=== PATIENT | female | born 1985 | race Caucasian/White ===

== ENCOUNTER 2016-08-25 19:19 | Emergency (ER) | payer MEDICAID ==
[2016-08-25] MEDS ORDERED: ONDANSETRON 4 MG/2 ML VIAL IVP STA (20:22)
[2016-08-25] MEDS ORDERED: HYDROmorphone 1 MG/ML SYRINGE IVP STA (20:22)
[2016-08-25] MEDS ORDERED: ONDANSETRON 4 MG/2 ML VIAL ONE (20:56)
[2016-08-25] MEDS ORDERED: HYDROmorphone 1 MG/ML SYRINGE ONE (20:56)
[2016-08-25] MEDS ORDERED: HYDROcod/ACET 5/325 Prepack 6 PO STA (22:09)
[2016-08-25] MEDS ORDERED: CIPROFLOXACIN 250 MG TABLET PO STA (22:09)
[2016-08-25] MEDS ORDERED: glipiZIDE 5 MG TABLET PO STA (22:10)
[2016-08-25] MEDS ORDERED: CIPROFLOXACIN 250 MG TABLET PO ONE (22:16)
[2016-08-25] MEDS ORDERED: HYDROcod/ACET 5/325 Prepack 6 PO ONE (22:16)
== END 2016-08-25 22:30 | disposition home or self-care (01) ==
DX: K80.70 Calculus of gallbladder and bile duct without cholecystitis without obstruction (principal); E11.65 Type 2 diabetes mellitus with hyperglycemia; Z79.84 Long term (current) use of oral hypoglycemic drugs; J45.909 Unspecified asthma, uncomplicated; M19.90 Unspecified osteoarthritis, unspecified site; R03.0 Elevated blood-pressure reading, without diagnosis of hypertension
CPT/HCPCS: 36415; 76705; 80053; 81003; 81025; 83690; 85025; 99283; 99284; A9270; J1170

== ENCOUNTER 2016-09-02 11:33 | Outpatient (CLI) | payer MEDICAID | END 2016-09-02 11:34 | disposition home or self-care (01) | DX: I10 Essential (primary) hypertension (principal); E11.9 Type 2 diabetes mellitus without complications; E66.01 Morbid (severe) obesity due to excess calories ==

== ENCOUNTER 2016-09-20 19:01 | Emergency (ER) | payer MEDICAID | END 2016-09-20 23:48 | disposition home or self-care (01) | DX: K80.20 Calculus of gallbladder without cholecystitis without obstruction (principal); E11.65 Type 2 diabetes mellitus with hyperglycemia; Z79.84 Long term (current) use of oral hypoglycemic drugs; I10 Essential (primary) hypertension; F17.200 Nicotine dependence, unspecified, uncomplicated ==

== ENCOUNTER 2016-11-09 22:40 | Emergency (ER) | payer MEDICAID ==
--- NOTE | 2016-11-10 02:08 | ED Physician Documentation ---
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 : None HEENT: None Psych: Depression, Anxiety, Bipolar disorder, Panic attacks, Post traumatic stress disorder, Claustrophobia Musculoskeletal: Other Derm: None - Past Surgical History Past Surgical History: No General: EGD - Present Medications Home Medications: Ambulatory Orders Medication Instructions Recorded Confirmed Glipizide [Glipizide ER] 5 mg PO DAILY #30 tab.er.24 08/25/16 09/20/16 Metformin HCl 1,000 mg PO BID 09/20/16 09/20/16 Ondansetron HCl [Zofran] 4 mg PO Q6HR PRN #14 tablet 11/10/16 - Allergies Allergies/Adverse Reactions: Allergies Allergy/AdvReac Type Severity Reaction Status Date / Time amoxicillin [Amoxicillin] AdvReac Severe Edema Verified 08/25/16 19:23 clarithromycin [From Biaxin] AdvReac Severe Edema Verified 08/25/16 19:23 erythromycin base AdvReac Severe Edema Verified 08/25/16 19:23 [Erythromycin Base] Penicillins AdvReac Severe Edema Verified 08/25/16 19:23 - Social History Does the pt smoke?: Yes Smoking Status: Current every day smoker Does the pt drink ETOH?: No Does the pt have substance abuse?: No - Immunizations Immunizations are current?: Yes - POLST Patient has POLST: No PD ED PE NORMAL - Vitals Vital signs reviewed: Yes - General General: Alert and oriented X 3, No acute distress, Well developed/nourished - Cardiac Cardiac: RRR, No murmur - Respiratory Respiratory: No respiratory distress - Abdomen Abdomen: Soft, Non tender PD ED PE EXPANDED - Respiratory Respiratory: Wheezing (end-expiratory wheezing bilaterally). No: Distress Results - Vitals Vitals: Oxygen O2 Source Room air - Rads (name of study) chest xray Radiology: Prelim report reviewed, See rad report PD MEDICAL DECISION MAKING - ED course Complexity details: reviewed results, re-evaluated patient, considered differential, d/w patient Departure - Departure Disposition: Home, Self Care Clinical Impression: Bronchitis Condition: Good Instructions: ED Upper Resp Infec No Abx Tx Follow-Up: Da Mccall MD [Primary Care Provider] - Within 3 Days Prescriptions: Ondansetron HCl [Zofran] 4 mg PO Q6HR PRN #14 tablet PRN Reason: Nausea / Vomiting Discharge Date/Time: 11/10/16 05:25
[2016-11-10] MEDS ORDERED: IPRATROPIUM/ALBUTEROL 3 ML NEB INH STA (02:24)
[2016-11-10] MEDS ORDERED: ONDANSETRON ODT 4 MG TABLET TL STA (02:25)
[2016-11-10] MEDS ORDERED: ONDANSETRON ODT 4 MG TABLET ONE (02:26)
[2016-11-10] MEDS ORDERED: IPRATROPIUM/ALBUTEROL 3 ML NEB INH ONE (02:33)
--- NOTE | 2016-11-10 03:12 | XRAY Preliminary Report ---
Exam: XR Chest 2 View PA/LAT IMPRESSION: 1. No acute abnormality seen in the chest. [facility] SITE ID: [id number]
--- NOTE | 2016-11-10 03:15 | XRAY Report ---
EXAM: CHEST RADIOGRAPHY EXAM DATE: 11/10/2016 02:53 AM. CLINICAL HISTORY: Cough, dyspnea. COMPARISON: 09/20/2016. TECHNIQUE: 2 views. FINDINGS: Lungs/Pleura: No alveolar consolidation or pleural effusion. No pneumothorax. Mediastinum: Heart and mediastinal contours are unremarkable. Other: None. IMPRESSION: 1. No acute abnormality seen in the chest. [facility] Referring Provider Line: [phone] SITE ID: [id number]
[2016-11-10] MEDS ORDERED: ALBUTEROL 8 GM INHALER INH STA (04:42)
[2016-11-10] MEDS ORDERED: ALBUTEROL 8 GM INHALER INH ONE (04:54)
[2016-11-10 05:25] VITALS: BP 128/70
== END 2016-11-10 05:25 | disposition home or self-care (01) ==
LOC: ED 22:40
DX: J45.909 Unspecified asthma, uncomplicated (principal); I10 Essential (primary) hypertension; E78.00 Pure hypercholesterolemia, unspecified; E11.9 Type 2 diabetes mellitus without complications; Z79.84 Long term (current) use of oral hypoglycemic drugs; Z87.11 Personal history of peptic ulcer disease; F17.200 Nicotine dependence, unspecified, uncomplicated
CPT/HCPCS: 71020; 94640; 94664; 99283; A9270; J7620; Q0162

== ENCOUNTER 2016-12-06 13:06 | Outpatient (CLI) | payer MEDICAID ==
[2016-12-06 19:17] LABS: CALCIUM 9.1 mg/dL (8.5-10.3); CREATININE 0.6 mg/dL (0.4-1.0); POTASSIUM 3.9 mmol/L (3.5-5.0)
[2016-12-06 19:41] LABS: HEMOGLOBIN A1C 0.8 g/dL
== END 2016-12-06 13:07 | disposition home or self-care (01) ==
LOC: LAB.N 13:06
PROVIDERS: ATTEND Family Medicine
DX: E11.9 Type 2 diabetes mellitus without complications (principal)
CPT/HCPCS: 36415; 80048; 83036

== ENCOUNTER 2016-12-23 21:48 | Emergency (ER) | payer MEDICAID ==
[2016-12-23 22:22] LABS: BASOPHILS # (AUTO) 0.1 10^3/uL (0.0-0.1); BASOPHILS % (AUTO) 0.8 %; EOSINOPHILS # (AUTO) 0.2 10^3/uL (0.0-0.7); EOSINOPHILS % (AUTO) 2.1 %; HCT - HEMATOCRIT 42.6 % (37.0-47.0); HGB - HEMOGLOBIN 14.3 g/dL (12.0-16.0); LYMPHOCYTES # (AUTO) 3.6 10^3/uL (1.5-3.5); LYMPHOCYTES % (AUTO) 31.7 %; MEAN CORPUSCULAR HEMOGLOBIN 29.5 pg (27.0-31.0); MEAN CORPUSCULAR HGB CONC 33.6 g/dL (32.0-36.0); MEAN CORPUSCULAR VOLUME 87.9 fL (81.0-99.0); MONOCYTES # (AUTO) 0.7 10^3/uL (0.0-1.0); NEUTROPHILS # (AUTO) 6.7 10^3/uL (1.5-6.6); NEUTROPHILS % (AUTO) 59.4 %; RED BLOOD COUNT 4.85 10^6/uL (4.20-5.40); RED CELL DISTRIBUTION WIDTH 13.1 % (12.0-15.0); UNCORRECTED WHITE BLOOD COUNT 11.3 x10^3/uL; WHITE BLOOD COUNT 11.3 x10^3/uL (4.8-10.8)
[2016-12-23 22:32] LABS: ALBUMIN/GLOBULIN RATIO 1.6 (1.0-2.2); BILIRUBIN,TOTAL 0.7 mg/dL (0.2-1.0); CALCIUM 9.4 mg/dL (8.5-10.3); CREATININE 0.7 mg/dL (0.4-1.0); POTASSIUM 3.6 mmol/L (3.5-5.0); TOTAL PROTEIN 7.6 g/dL (6.7-8.2)
[2016-12-23] MEDS ORDERED: ONDANSETRON 4 MG/2 ML VIAL IVP STA (22:35)
[2016-12-23] MEDS ORDERED: HYDROmorphone 1 MG/ML SYRINGE IVP STA (22:35)
--- NOTE | 2016-12-23 22:37 | ED Physician Documentation ---
PD HPI ABD PAIN - Stated complaint Stated Complaint: N/V/RT SIDE PX - Chief complaint Chief Complaint: Abd Pain - History obtained from History obtained from: Patient - History of Present Illness Timing - onset: How many hours ago (6) Timing - duration: Hours (6) Timing - details: Abrupt onset Pain level max: 8 Pain level now: 8 Quality: Aching, Pain Location: RUQ Radiation: Other (R upper back) Improved by: Vomiting Worsened by: Eating Associated symptoms: Nausea, Vomiting. No: Fever, Hematemesis, Diarrhea, Constipation, Melena, Hematochezia, Dysuria, Hematuria Similar symptoms before: Diagnosis (gallstones) Recently seen: Not recently seen Review of Systems Ten Systems: 10 systems reviewed and negative Constitutional: denies: Fever, Chills Nose: denies: Rhinorrhea / runny nose, Congestion Throat: denies: Sore throat Cardiac: denies: Chest pain / pressure Respiratory: denies: Cough, Wheezing GI: denies: Diarrhea, Hematemesis, Bloody / black stool : denies: Dysuria, Frequency, Hesitancy, Discharge, Now EGA Skin: denies: Rash Musculoskeletal: denies: Neck pain Neurologic: denies: Headache PD PAST MEDICAL HISTORY - Past Medical History Cardiovascular: Hypertension, High cholesterol Respiratory: Asthma Neuro: None Endocrine/Autoimmune: Type 2 diabetes GI: Ulcers, 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 : None HEENT: None Psych: Depression, Anxiety, Bipolar disorder, Panic attacks, Post traumatic stress disorder, Claustrophobia Musculoskeletal: Other Derm: None - Past Surgical History Past Surgical History: No General: EGD - Present Medications Home Medications: Ambulatory Orders Medication Instructions Recorded Confirmed Glipizide [Glipizide ER] 5 mg PO DAILY #30 tab.er.24 08/25/16 12/23/16 Metformin HCl 1,000 mg PO BID 09/20/16 12/23/16 Ciprofloxacin HCl [Cipro] 500 mg PO BID #20 tablet 12/24/16 Metronidazole [Flagyl] 500 mg PO BID #20 tablet 12/24/16 - Allergies Allergies/Adverse Reactions: Allergies Allergy/AdvReac Type Severity Reaction Status Date / Time amoxicillin [Amoxicillin] AdvReac Severe Edema Verified 12/23/16 21:54 clarithromycin [From Biaxin] AdvReac Severe Edema Verified 12/23/16 21:54 erythromycin base AdvReac Severe Edema Verified 12/23/16 21:54 [Erythromycin Base] Penicillins AdvReac Severe Edema Verified 12/23/16 21:54 - Social History Does the pt smoke?: Yes Smoking Status: Current every day smoker Does the pt drink ETOH?: No Does the pt have substance abuse?: No - Immunizations Immunizations are current?: Yes - POLST Patient has POLST: No PD ED PE NORMAL - Vitals Vital signs reviewed: Yes - General General: Alert and oriented X 3, No acute distress, Well developed/nourished - HEENT HEENT: PERRL, Moist mucous membranes - Neck Neck: Supple, no meningeal sign - Cardiac Cardiac: RRR, Strong equal pulses - Respiratory Respiratory: No respiratory distress, Clear bilaterally - Abdomen Abdomen: Soft, Non distended, Other (Tender to palpation right upper quadrant. Equivocal Hernandez sign.) - Back Back: No CVA TTP, No spinal TTP - Derm Derm: Warm and dry, No rash - Neuro Neuro: Alert and oriented X 3 - Psych Psych: Normal mood, Normal affect Results - Vitals Vitals: Vital Signs - 24 hr 12/23/16 12/23/16 12/24/16 21:51 23:58 01:18 Temperature 36.3 C L Heart Rate 106 H 81 90 Respiratory 16 19 14 Rate Blood Pressure 143/95 H 136/73 H 121/77 O2 Saturation 100 95 98 Oxygen O2 Source Room air - Labs Labs: Laboratory Tests 12/23/16 12/23/16 12/23/16 22:10 22:10 22:30 WBC 11.3 H RBC 4.85 Hgb 14.3 Hct 42.6 MCV 87.9 MCH 29.5 MCHC 33.6 RDW 13.1 Plt Count 283 MPV 7.0 L Neut # 6.7 H Lymph # 3.6 H [place] # 0.7 Eos # 0.2 Baso # 0.1 Absolute Nucleated RBC 0.00 Nucleated RBCs 0.0 Sodium 140 Potassium 3.6 Chloride 103 Carbon Dioxide 27 Anion Gap 10.0 BUN 11 Creatinine 0.7 Estimated GFR (MDRD) 96 Glucose 133 H Calcium 9.4 Total Bilirubin 0.7 AST 21 ALT 24 Alkaline Phosphatase 85 Total Protein 7.6 Albumin 4.7 Globulin 2.9 Albumin/Globulin Ratio 1.6 Lipase 20 L Urine Color YELLOW Urine Clarity CLEAR Urine pH 5.5 Ur Specific [place] >=1.030 H Urine Protein NEGATIVE Urine Glucose (UA) NEGATIVE Urine Ketones NEGATIVE Urine Occult Blood NEGATIVE Urine Nitrite NEGATIVE Urine Bilirubin NEGATIVE Urine Urobilinogen 0.2 (NORMAL) Ur Leukocyte Esterase NEGATIVE Ur Microscopic Review NOT INDICATED Urine Culture Comments NOT INDICATED - Rads (name of study) Right upper quadrant ultrasound Radiology: Prelim report reviewed, EMP read contemporaneously, See rad report ( Gallstones with mild gallbladder wall thickening and positive sonographic Hernandez sign concerning for acute cholecystitis. Echogenic liver consistent with hepatic steatosis. Indeterminant rounded left liver hypoechoic region, focal fat could have this appearance. Other etiologies also possible. Postcontrast enhanced CT or MRI would be confirmatory. Liver is enlarged. Normal caliber common bile duct.) PD MEDICAL DECISION MAKING - ED course Complexity details: reviewed results, re-evaluated patient, considered differential, d/w patient, d/w family, d/w alliances consultant ED course: Patient is a 31-year-old female who presents to the emergency department with right upper quadrant pain. She is found to have acute cholecystitis on ultrasound. Mildly elevated white blood cell count. Pain well controlled. Surgery was consulted, Dr. Thomason, who evaluated the patient and recommend that she stay for cholecystectomy. Patient declines this and states that she wants to go home. She understands the risks of leaving AMA and is encouraged to return at any time should she change her mind. Patient signed AMA. Will place on antibiotics for home. She is alert and oriented 3. Understands the risks. Is able to make this decision at this time. This document was made in part using voice recognition software. While efforts are made to proofread this document, sound alike and grammatical errors may occur. Departure - Departure Disposition: 07 Against Medical Advice Clinical Impression: Cholecystitis Condition: Stable Instructions: ED Gallbladder Infec Conf Follow-Up: Da Mccall MD [Primary Care Provider] - Within 3 Days Prescriptions: Ciprofloxacin HCl [Cipro] 500 mg PO BID #20 tablet Metronidazole [Flagyl] 500 mg PO BID #20 tablet Comments: Return if you worsen or change your mind about being admitted and having surgery. There is a possibility of your infection worsening and causing sepsis ( blood stream infection) , loss of limbs and loss of your current lifestyle by leaving against medical advice. You are welcome to return at any time should you change your mind. Discharge Date/Time: 12/24/16 02:45
[2016-12-23 22:48] LABS: BILIRUBIN,URINE NEGATIVE (NEGATIVE); PH,URINE 5.5 PH (5.0-7.5)
[2016-12-23 22:51] LABS: UA CHARGE (STRIP ONLY) YES; UR CULTURE IF IND NOT INDICATED
[2016-12-23] MEDS ORDERED: ONDANSETRON 4 MG/2 ML VIAL ONE (22:55)
[2016-12-23] MEDS ORDERED: HYDROmorphone 1 MG/ML SYRINGE ONE (22:55)
--- NOTE | 2016-12-24 00:26 | Ultrasound Preliminary Report ---
Exam: US Abdomen Limited IMPRESSION: 1. Gallstones with mild gallbladder wall thickening and positive sonographic Hernandez's sign concerning for acute cholecystitis. Findings are similar to the previous study. 2. Echogenic liver consistent with hepatic steatosis. Indeterminate rounded left liver hypoechoic reg ion. Focal fact could have this appearance. Other etiologies are also possible. Post contrast enhance d CT or MRI would be confirmatory. Liver is enlarged. 3. Normal caliber common bile duct. [facility] SITE ID: [id number]
--- NOTE | 2016-12-24 00:39 | Ultrasound Report ---
EXAM: ABDOMEN ULTRASOUND LIMITED, RUQ EXAM DATE: 12/23/2016 10:55 PM. CLINICAL HISTORY: Right upper quadrant abdominal pain. COMPARISON: 09/20/2016. TECHNIQUE: Real-time scanning was performed with static images obtained. FINDINGS: Liver: Liver parenchyma is heterogeneous and moderately hyperechoic. Rounded hypoechoic region in t he left liver measuring 2.4 x 2.3 x 2.9 cm. No intrahepatic bile duct dilation is noted. 21.2 cm. Ma in portal vein flow: Hepatopetal. Gallbladder: Gallstones are noted. Positive sonographic Hernandez sign. Mild gallbladder wall thickening . No pericholecystic fluid. Biliary System: CBD measures 4 mm. No intrahepatic or extrahepatic ductal dilatation. Other: Right kidney measures 12.9 cm. No hydronephrosis. Pancreas not well-seen. Study limited due to body habitus. IMPRESSION: 1. Gallstones with mild gallbladder wall thickening and positive sonographic Hernandez's sign concerning for acute cholecystitis. Findings are similar to the previous study. 2. Echogenic liver consistent with hepatic steatosis. Indeterminate rounded left liver hypoechoic reg ion. Focal fat could have this appearance. Other etiologies are also possible. Post-contrast enhanced CT or MRI would be confirmatory. Liver is enlarged. 3. Normal caliber common bile duct. [facility] Referring Provider Line: [phone] SITE ID: [id number]
[2016-12-24] MEDS ORDERED: HYDROmorphone 1 MG/ML SYRINGE IVP STA (00:45)
[2016-12-24] MEDS ORDERED: MOXIFLOXACIN 400MG/250ML IV 250 ML IV STA (00:49)
[2016-12-24] MEDS ORDERED: HYDROmorphone 1 MG/ML SYRINGE ONE (00:50)
[2016-12-24 01:20] VITALS: BP 121/77
[2016-12-24] MEDS ORDERED: LACTATED RINGERS 1,000 ML IV SCH (02:00)
[2016-12-24] MEDS ORDERED: metroNIDAZOLE 500 MG/100 ML 100 ML IV SCH (02:00)
--- NOTE | 2016-12-24 02:10 | CONSULTATION NOTE ---
Surgery Consult - Admit Date Hospital Admission Date: 12/24/16 - Consult Date Consult Date: 12/24/16 - Home Meds/Allergies Home Medications: Patient History Medication Instructions Recorded Confirmed Metformin HCl 1,000 mg PO BID 09/20/16 12/23/16 Allergies/Adverse Reactions: Allergies Allergy/AdvReac Type Severity Reaction Status Date / Time amoxicillin [Amoxicillin] AdvReac Severe Edema Verified 12/23/16 21:54 clarithromycin [From Biaxin] AdvReac Severe Edema Verified 12/23/16 21:54 erythromycin base AdvReac Severe Edema Verified 12/23/16 21:54 [Erythromycin Base] Penicillins AdvReac Severe Edema Verified 12/23/16 21:54 - Consultation Note Consultation Note: PD HPI ABD PAIN - Stated complaint Stated Complaint: N/V/RT SIDE PX - Chief complaint Chief Complaint: Abd Pain - History obtained from History obtained from: Patient - History of Present Illness 31 yo female with PMHx of symptomatic cholelithiasis, DM, PTSD anxiety, HTN, high cholesterol, Depression c/o of recuurent RUQ abdominal pain 8/10 intermittent, sharp. relieved by IV pain medications. She states and as per notes she was seen by our surgical grou for preop for surgery 08/2016 and A1C was found to be 10 and surgery was cancelled. she presents today with Nausea and vomiting and the pain described as above which became unbearable so she came to the ED. She states her current pain is 4 to 5/10 and she has no nausea or vomiting at this time. She is aware that she has gallstones with inflammation and cholecystitis was explained to her. She does not want to stay for possible surgery due to "obligations" she has. The risks of of leaving against medical advice including risk of recurrent pain, worsening cholecystitis , pancreatitis, sepsis, were discussed with patient & her mother in layman 's terms and the patient stated that she has an appointment on 01/07 with her PCP for a referral to a different surgical group. Associated symptoms: Nausea, Vomiting. No: Fever, Hematemesis, Diarrhea, Constipation, Melena, Hematochezia, Dysuria, Hematuria Similar symptoms before: Diagnosis (gallstones) Recently seen: Not recently seen Review of Systems Ten Systems: 10 systems reviewed and negative Constitutional: denies: Fever, Chills Nose: denies: Rhinorrhea / runny nose, Congestion Throat: denies: Sore throat Cardiac: denies: Chest pain / pressure Respiratory: denies: Cough, Wheezing GI: denies: Diarrhea, Hematemesis, Bloody / black stool : denies: Dysuria, Frequency, Hesitancy, Discharge, Now EGA Skin: denies: Rash Musculoskeletal: denies: Neck pain Neurologic: denies: Headache PD PAST MEDICAL HISTORY - Past Medical History Cardiovascular: Hypertension, High cholesterol Respiratory: Asthma Neuro: None Endocrine/Autoimmune: Type 2 diabetes GI: Ulcers, 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 : None HEENT: None Psych: Depression, Anxiety, Bipolar disorder, Panic attacks, Post traumatic stress disorder, Claustrophobia Musculoskeletal: Other Derm: None - Past Surgical History Past Surgical History: No General: EGD - Present Medications Home Medications: Ambulatory Orders Medication Instructions Recorded Confirmed Glipizide [Glipizide ER] 5 mg PO DAILY #30 tab.er.24 08/25/16 12/23/16 Metformin HCl 1,000 mg PO BID 09/20/16 12/23/16 - Allergies Allergies/Adverse Reactions: Allergies Allergy/AdvReac Type Severity Reaction Status Date / Time amoxicillin [Amoxicillin] AdvReac Severe Edema Verified 12/23/16 21:54 clarithromycin [From Biaxin] AdvReac Severe Edema Verified 12/23/16 21:54 erythromycin base AdvReac Severe Edema Verified 12/23/16 21:54 [Erythromycin Base] Penicillins AdvReac Severe Edema Verified 12/23/16 21:54 - Social History Does the pt smoke?: Yes Smoking Status: Current every day smoker Does the pt drink ETOH?: No Does the pt have substance abuse?: No - Immunizations Immunizations are current?: Yes - POLST Patient has POLST: No PE - Vitals Vital signs reviewed: Yes - General General: Alert and oriented X 3, No acute distress, Well developed/nourished, playing on phone - HEENT HEENT: PERRL, Moist mucous membranes - Neck Neck: Supple, no meningeal sign - Cardiac Cardiac: RRR, Strong equal pulses - Respiratory Respiratory: No respiratory distress, Clear bilaterally - Abdomen Abdomen: Soft, morbidly obese,ND, Minimally tender to palpation RUQ. No rebound or guarding , negative hernandez's - Back Back: No CVA TTP, No spinal TTP - Derm Derm: Warm and dry, No rash - Neuro Neuro: Alert and oriented X 3 - Psych Psych: Labile affect Results - Vitals Vitals: Vital Signs - 24 hr 12/23/16 12/23/16 21:51 23:58 Temperature 36.3 C L Heart Rate 106 H 81 Respiratory 16 19 Rate Blood Pressure 143/95 H 136/73 H O2 Saturation 100 95 Oxygen O2 Source Room air - Labs Labs: Laboratory Tests 12/23/16 12/23/16 12/23/16 22:10 22:10 22:30 WBC 11.3 H RBC 4.85 Hgb 14.3 Hct 42.6 MCV 87.9 MCH 29.5 MCHC 33.6 RDW 13.1 Plt Count 283 MPV 7.0 L Neut # 6.7 H Lymph # 3.6 H [place] # 0.7 Eos # 0.2 Baso # 0.1 Absolute Nucleated RBC 0.00 Nucleated RBCs 0.0 Sodium 140 Potassium 3.6 Chloride 103 Carbon Dioxide 27 Anion Gap 10.0 BUN 11 Creatinine 0.7 Estimated GFR (MDRD) 96 Glucose 133 H Calcium 9.4 Total Bilirubin 0.7 AST 21 ALT 24 Alkaline Phosphatase 85 Total Protein 7.6 Albumin 4.7 Globulin 2.9 Albumin/Globulin Ratio 1.6 Lipase 20 L Urine Color YELLOW Urine Clarity CLEAR Urine pH 5.5 Ur Specific [place] >=1.030 H Urine Protein NEGATIVE Urine Glucose (UA) NEGATIVE Urine Ketones NEGATIVE Urine Occult Blood NEGATIVE Urine Nitrite NEGATIVE Urine Bilirubin NEGATIVE Urine Urobilinogen 0.2 (NORMAL) Ur Leukocyte Esterase NEGATIVE Ur Microscopic Review NOT INDICATED Urine Culture Comments NOT INDICATED - Rads (name of study) Right upper quadrant ultrasound Radiology: IMPRESSION: 1. Gallstones with mild gallbladder wall thickening and positive sonographic Hernandez's sign concerning for acute cholecystitis. Findings are similar to the previous study. 2. Echogenic liver consistent with hepatic steatosis. Indeterminate rounded left liver hypoechoic region. Focal fat could have this appearance. Other etiologies are also possible. Post-contrast enhanced CT or MRI would be confirmatory. Liver is enlarged. 3. Normal caliber common bile duct. A/P31 yo female with multiple medical problems including cholecystitis acute vs chronic Recommended patient stay for IV fluids, antibiotics, pain control and cholecystectomy in the am. Patient does not want to stay and is signing out AMA. She understands the risks as described in the HPI and states she is going to see her PCP on the 07 of January. She was instructed to call 911 and return to the ED if she develops fevers , worsening abdominal pain, or vomiting. Recommended to ED attending to give Rx for abx, anti-nausea & pain control
[2016-12-24] MEDS ORDERED: CIPROFLOXACIN 400 MG/200 ML 200 ML IV SCH (09:00)
== END 2016-12-24 02:45 | disposition left against medical advice (07) ==
LOC: ED 21:48
DX: K81.9 Cholecystitis, unspecified (principal); I10 Essential (primary) hypertension; E11.9 Type 2 diabetes mellitus without complications; Z79.84 Long term (current) use of oral hypoglycemic drugs; F17.200 Nicotine dependence, unspecified, uncomplicated
CPT/HCPCS: 36415; 76705; 80053; 81003; 83690; 85025; 96374; 96375; 96376; 99283; 99285; J1170; 81001; 83036; 84703; 85610; 85730; 86850; 86900; 86901; 87086

== ENCOUNTER 2017-01-31 09:36 | Outpatient (CLI) | payer MEDICAID ==
[2017-01-31 10:27] LABS: ALBUMIN/GLOBULIN RATIO 1.4 (1.0-2.2); BILIRUBIN,TOTAL 0.6 mg/dL (0.2-1.0); CALCIUM 9.1 mg/dL (8.5-10.3); CREATININE 0.6 mg/dL (0.4-1.0); POTASSIUM 4.2 mmol/L (3.5-5.0); TOTAL PROTEIN 7.3 g/dL (6.7-8.2)
== END 2017-01-31 09:37 | disposition home or self-care (01) ==
LOC: LAB 09:36
PROVIDERS: ATTEND Surgery
DX: Z01.812 Encounter for preprocedural laboratory examination (principal); K81.9 Cholecystitis, unspecified; K80.20 Calculus of gallbladder without cholecystitis without obstruction
CPT/HCPCS: 36415; 80053

== ENCOUNTER 2017-02-08 06:10 | Day surgery (SDC) | payer MEDICAID ==
[2017-02-08] MEDS ORDERED: LACTATED RINGERS 1,000 ML IV ONE ×2 (07:12→08:21)
[2017-02-08 07:29] LABS: HCG UR QUAL NEGATIVE
[2017-02-08] MEDS ORDERED: ceFAZolin 3 GM/20 ML SYRINGE IVP ONE (08:00)
[2017-02-08] MEDS ORDERED: BUPIVACAINE 0.5%-EPI 1:200000 PF 30 ML VIAL SUBQ ONE ×2 (08:13)
[2017-02-08] MEDS ORDERED: ROCURONIUM 50 MG/5 ML VIAL IVP ONE (08:15)
[2017-02-08] MEDS ORDERED: SUCCINYLCHOLINE 200 MG/10 ML VIAL IVP ONE (08:15)
[2017-02-08] MEDS ORDERED: GLYCOPYRROLATE 1 MG/5 ML VIAL IVP ONE (08:15)
[2017-02-08] MEDS ORDERED: ONDANSETRON 4 MG/2 ML VIAL IVP ONE (08:15)
[2017-02-08] MEDS ORDERED: MIDAZOLAM 2 MG/2 ML VIAL IVP ONE (08:15)
[2017-02-08] MEDS ORDERED: NEOSTIGMINE 1 MG/1 ML 10 ML MDV IVP ONE (08:15)
[2017-02-08] MEDS ORDERED: PROPOFOL 200 MG/20 ML VIAL IVP ONE (08:15)
[2017-02-08] MEDS ORDERED: LIDOCAINE-PF 2% 10 ML AMP SUBQ ONE (08:15)
[2017-02-08] MEDS ORDERED: fentaNYL 100 MCG/2 ML VIAL IVP ONE (08:15)
[2017-02-08] MEDS ORDERED: ACETAMINOPHEN 1,000 MG/100 ML VIAL IV ONE (08:15)
[2017-02-08] MEDS ORDERED: DEXAMETHASONE 4 MG/ML VIAL IVP ONE (08:15)
[2017-02-08] MEDS ORDERED: SODIUM CHLORIDE FLUSH 0.9% 10 ML SYRINGE IVP ONE (10:20)
[2017-02-08] MEDS: fentaNYL 100 MCG/2 ML VIAL ONE ×6 (10:22→11:19)
[2017-02-08] MEDS: HYDROmorphone 1 MG/ML SYRINGE ONE ×5 (10:26→11:18)
--- NOTE | 2017-02-08 10:31 | OPERATIVE REPORT ---
DATE OF SURGERY: 02/08/2017 00:00:00 SURGEON: Radha Bernal MD. PREOPERATIVE DIAGNOSIS: History of acute cholecystitis and recurring biliary colic. POSTOPERATIVE DIAGNOSIS: History of acute cholecystitis and recurring biliary colic. NAME OF PROCEDURE: Laparoscopic cholecystectomy. INDICATION FOR PROCEDURE: This is a 32-year-old morbidly obese female who presented to my office for recurrent biliary colic and acute cholecystitis. She had been seen by previous surgeons in the past; however, she was noncompliant with her diabetic medications and her hemoglobin A1c was over 10. Once her diabetes was well controlled with a hemoglobin at around 7, she was scheduled for elective surgery. FINDINGS: After obtaining informed consent from the patient, she was brought into the operating room and positioned on the operating table in the supine position, taking note of pressure points. A foot board was placed and the patient was secured at the level of the feet, legs and chest to ensure no slippage during surgery. She was then prepped and draped in the usual sterile fashion. She was intubated by Anesthesia; 3 grams of Ancef were administered. A time-out was taken according to protocol. I attempted to place a varess needle in the left upper quadrant, however, it was not long enough to enter the abdominal cavity. A supraumbilical 1 cm incision was created and deepened down to the level of the umbilical stalk. The Veress needle was inserted in this location and the peritoneal cavity insufflated. Using the 5 mm Optiview trocar device, the abdominal cavity was entered in the epigastric region to the right of the midline. The Veress needle was exchanged for a 12 mm port. Two additional 5 mm ports were then placed along the right subcostal margin. The gallbladder was grasped and elevated. Filmy adhesions of the underlying omentum were divided using electrocautery. The liver was noted to be quite large and the gallbladder was unable to be retracted over the dome of the liver. Additionally, the patient's body habitus created difficulty in obtaining adequate visualization. She was placed in a very steep Trendelenburg and eventually visualization of the base of the gallbladder was achieved. The gallbladder was retracted medially and the lateral attachments of the base of the gallbladder were divided both anteriorly and then medially. The cystic duct was then visualized, as well as the underlying common bile duct. The common bile duct was protected during dissection. The cystic duct was circumferentially dissected from fatty tissue. It was clipped with 2 clips, placed proximally, 1 distally, and divided. The cystic artery was then located and was similarly dissected away from surrounding structures with 2 clips placed proximally, 1 distally, and divided. The gallbladder was then resected from the gallbladder fossa. There was a small amount of bleeding from the liver bed during this process and this was controlled with electrocautery. There was no spillage of bile or stones during removal of the gallbladder. The gallbladder was then placed in a specimen bag and the camera changed to the epigastric port site. The gallbladder was removed through the umbilical port site. The abdominal cavity was inspected for signs of bleeding and hemostasis was noted to be achieved. I attempted to close the epigastric port site with a Nicholas-Lizzette device; however, due to the large amount of subcutaneous tissue , the device continued to drop the suture upon pulling it through the subcutaneous tissue. Multiple attempts failed and I eventually had to close the port site from the anterior approach. The incision had to be extended about 1 cm cephalad in order to visualize the fascia. The fascia was then closed with 2 interrupted [id number] Vicryl sutures. The skin incisions were closed with 4-0 Monocryl; 30 mL of local anesthetic was utilized. The fascia was then extubated and taken to the recovery room in stable condition. ESTIMATED BLOOD LOSS: 10 mL. SPECIMEN: Gallbladder. COMPLICATIONS: None. 10:9:00 JOB #: [id number] EXT JOB #:[id number] KARYN
[2017-02-08 12:46] VITALS: BP 113/62
== END 2017-02-08 06:11 | disposition home or self-care (01) ==
LOC: SDS 06:10
PROVIDERS: ATTEND Surgery
PROC: 0FT44ZZ Resection of Gallbladder, Percutaneous Endoscopic Approach (ICD-10-PCS; principal; 2017-02-08 07:30)
DX: K80.10 Calculus of gallbladder with chronic cholecystitis without obstruction (principal); E11.9 Type 2 diabetes mellitus without complications; E66.01 Morbid (severe) obesity due to excess calories; I10 Essential (primary) hypertension; F17.210 Nicotine dependence, cigarettes, uncomplicated; Z68.42 Body mass index [BMI] 45.0-49.9, adult; Z79.84 Long term (current) use of oral hypoglycemic drugs; Z88.0 Allergy status to penicillin; Z88.2 Allergy status to sulfonamides
CPT/HCPCS: 47562; 81025; J0131; J1170; J7120

== ENCOUNTER 2017-04-15 11:58 | Emergency (ER) | payer MEDICAID ==
[2017-04-15 13:16] LABS: BASOPHILS # (AUTO) 0.1 10^3/uL (0.0-0.1); BASOPHILS % (AUTO) 0.6 %; EOSINOPHILS # (AUTO) 0.4 10^3/uL (0.0-0.7); EOSINOPHILS % (AUTO) 3.6 %; HCT - HEMATOCRIT 41.5 % (37.0-47.0); LYMPHOCYTES # (AUTO) 2.4 10^3/uL (1.5-3.5); LYMPHOCYTES % (AUTO) 20.3 %; MEAN CORPUSCULAR HEMOGLOBIN 29.5 pg (27.0-31.0); MEAN CORPUSCULAR HGB CONC 33.9 g/dL (32.0-36.0); MEAN CORPUSCULAR VOLUME 87.2 fL (81.0-99.0); MONOCYTES # (AUTO) 0.7 10^3/uL (0.0-1.0); MONOCYTES % (AUTO) 6.3 %; NEUTROPHILS % (AUTO) 69.2 %; NUCLEATED RED BLOOD CELLS AUTO 0.2 /100WBC; RED BLOOD COUNT 4.76 10^6/uL (4.20-5.40); RED CELL DISTRIBUTION WIDTH 12.9 % (12.0-15.0); UNCORRECTED WHITE BLOOD COUNT 11.6 x10^3/uL; WHITE BLOOD COUNT 11.6 x10^3/uL (4.8-10.8)
--- NOTE | 2017-04-15 13:16 | XRAY Preliminary Report ---
Exam: XR CHEST 2 VIEW PA/LAT IMPRESSION: Normal 2-view chest radiography. [facility] SITE ID: [id number]
--- NOTE | 2017-04-15 13:19 | XRAY Report ---
EXAM: CHEST RADIOGRAPHY EXAM DATE: 04/15/2017 01:08 PM. CLINICAL HISTORY: Cough. COMPARISON: 11/10/2016. TECHNIQUE: 2 views. FINDINGS: Lungs/Pleura: No focal opacities evident. No pleural effusion. No pneumothorax. Normal volumes. Mediastinum: Heart and mediastinal contours are unremarkable. Other: None. IMPRESSION: Normal 2-view chest radiography. [facility] Referring Provider Line: [phone] SITE ID: [id number]
[2017-04-15 13:25] LABS: BILIRUBIN,URINE NEGATIVE (NEGATIVE); PH,URINE 5.5 PH (5.0-7.5)
[2017-04-15 13:27] LABS: HCG UR QUAL NEGATIVE; UA w/ MICROSCOPIC CHARGE YES
[2017-04-15 13:34] LABS: ALBUMIN/GLOBULIN RATIO 1.2 (1.0-2.2); BILIRUBIN,TOTAL 0.7 mg/dL (0.2-1.0); CALCIUM 8.7 mg/dL (8.5-10.3); CREATININE 0.6 mg/dL (0.4-1.0); TOTAL PROTEIN 7.4 g/dL (6.7-8.2)
[2017-04-15 13:47] LABS: UR CULTURE IF IND NOT INDICATED; WBC,URINE 0-3 /HPF (0-5)
[2017-04-15] MEDS ORDERED: IPRATROPIUM/ALBUTEROL 3 ML NEB INH STA (14:25)
[2017-04-15] MEDS ORDERED: IPRATROPIUM/ALBUTEROL 3 ML NEB INH ONE (15:02)
[2017-04-15] MEDS ORDERED: ALBUTEROL NEB 2.5 MG/3 ML INH STA (15:23)
[2017-04-15] MEDS ORDERED: ALBUTEROL NEB 2.5 MG/3 ML INH ONE (15:28)
--- NOTE | 2017-04-15 16:29 | ED Physician Documentation ---
History of Present Illness - Stated complaint Stated Complaint: COUGH/VOMITING - Chief complaint Chief Complaint: Abd Pain - History obtained from History obtained from: Patient - History of Present Illness Timing: How many days ago (5) - Additonal information Additional information: The patient is a 32-year-old female who presents with cough of 5 days' duration. Her cough is productive of scant sputum. She reports associated fever and chills, as well as sore throat and myalgias. She sometimes coughs to the point of vomiting. She also reports intermittent diarrhea for the past 4 days. She reports headaches, myalgias, and dysuria. Other family members have been ill with similar symptoms. Social history is significant for cigarette smoking. Review of Systems Constitutional: reports: Fever, Chills, Myalgias, Fatigue Eyes: denies: Irritation Ears: denies: Ear pain Nose: reports: Congestion Throat: reports: Sore throat Cardiac: denies: Chest pain / pressure Respiratory: reports: Dyspnea, Cough GI: reports: Vomiting, Diarrhea. denies: Abdominal Pain : reports: Dysuria Skin: denies: Rash Musculoskeletal: reports: Back pain (chronically). 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 HEENT: Chronic vision loss Psych: Depression, Anxiety, Bipolar disorder, Panic attacks, ADD/ADHD, Post traumatic stress disorder, Claustrophobia, Obsessive compulsive disorder Musculoskeletal: Osteoarthritis, Chronic back pain, Other Derm: None - Past Surgical History Past Surgical History: No General: EGD - Present Medications Home Medications: Ambulatory Orders Medication Instructions Recorded Confirmed Glipizide [Glipizide ER] 5 mg PO DAILY #30 tab.er.24 08/25/16 04/15/17 Metformin HCl 1,000 mg PO BID 09/20/16 04/15/17 Albuterol Sulfate [Proventil Hfa 1 - 2 puffs INH Q4H PRN #1 inhaler 04/15/17 Inhaler] Azithromycin [Zithromax] 250 mg PO DAILY #6 tablet 04/15/17 Inhaler, Assist Devices 1 each MC PRN PRN #1 spacer 04/15/17 [Aerochamber Mini] - Allergies Allergies/Adverse Reactions: Allergies Allergy/AdvReac Type Severity Reaction Status Date / Time Sulfa (Sulfonamide Allergy Severe Anaphylaxis Verified 01/31/17 10:07 Antibiotics) amoxicillin [Amoxicillin] AdvReac Severe Edema Verified 12/23/16 21:54 clarithromycin [From Biaxin] AdvReac Severe Edema Verified 12/23/16 21:54 erythromycin base AdvReac Severe Edema Verified 12/23/16 21:54 [Erythromycin Base] Penicillins AdvReac Severe Edema Verified 12/23/16 21:54 - Social History Does the pt smoke?: Yes Smoking Status: Current every day smoker Does the pt drink ETOH?: No Does the pt have substance abuse?: No - Immunizations Immunizations are current?: Yes - POLST Patient has POLST: No PD ED PE NORMAL - Vitals Vital signs reviewed: Yes (normal) - General General: Alert and oriented X 3, Other (morbidly obese) - HEENT HEENT: Atraumatic, Ears normal, Pharynx benign - Neck Neck: Supple, no meningeal sign, No adenopathy, No JVD - Cardiac Cardiac: RRR, No murmur - Respiratory Respiratory: Other (Prolonged expiratory phase with poor air movement and faint wheezes heard bilaterally.) - Abdomen Abdomen: Soft, Non tender - Back Back: No CVA TTP - Derm Derm: No rash - Extremities Extremities: No edema, No calf tenderness / cord - Neuro Neuro: Alert and oriented X 3, No motor deficit, Normal speech Results - Vitals Vitals: Oxygen O2 Source Room air - Labs Labs: Laboratory Tests 04/15/17 04/15/17 04/15/17 12:13 13:10 13:10 WBC 11.6 H RBC 4.76 Hgb 14.0 Hct 41.5 MCV 87.2 MCH 29.5 MCHC 33.9 RDW 12.9 Plt Count 275 MPV 7.0 L Neut # 8.0 H Lymph # 2.4 [place] # 0.7 Eos # 0.4 Baso # 0.1 Absolute Nucleated RBC 0.02 Nucleated RBC % 0.2 Sodium 136 Potassium 4.0 Chloride 103 Carbon Dioxide 26 Anion Gap 7.0 BUN 9 Creatinine 0.6 Estimated GFR (MDRD) 114 Glucose 135 H Calcium 8.7 Total Bilirubin 0.7 AST 22 ALT 29 Alkaline Phosphatase 87 Total Protein 7.4 Albumin 4.1 Globulin 3.3 Albumin/Globulin Ratio 1.2 Lipase 16 L Urine Color YELLOW Urine Clarity CLOUDY Urine pH 5.5 Ur Specific [place] >=1.030 H Urine Protein NEGATIVE Urine Glucose (UA) NEGATIVE Urine Ketones NEGATIVE Urine Occult Blood NEGATIVE Urine Nitrite NEGATIVE Urine Bilirubin NEGATIVE Urine Urobilinogen 0.2 (NORMAL) Ur Leukocyte Esterase NEGATIVE Urine RBC 0-5 Urine WBC 0-3 Ur Squamous Epith Cells MOD Squamous H Urine Bacteria None Seen Ur Microscopic Review INDICATED Urine Culture Comments NOT INDICATED Urine HCG, Qual NEGATIVE - Rads (name of study) CXR Radiology: Prelim report reviewed, EMP read contemporaneously, See rad report ( Normal 2 view chest.) PD MEDICAL DECISION MAKING - ED course Complexity details: reviewed old records, reviewed results, re-evaluated patient , considered differential, d/w patient, d/w family ED course: The patient's presentation is most consistent with acute asthmatic bronchitis. Her chest x-ray does not reveal pneumonia or congestive heart failure. CBC reveals a mildly elevated white count of 11.6. Urinalysis is negative. Treatment in the emergency department included administration of DuoNeb nebulizer, followed later by albuterol nebulizer. On reexamination the patient' s air movement has improved, wheezes became more pronounced after the initial nebulizer, but improved after the second nebulizer. At the time of discharge the patient felt subjectively much improved. Given her presentation and her history of cigarette smoking, antibiotic therapy is considered clinically appropriate. She is being discharged with prescription for Zithromax. I discussed with her and her mother the diagnosis, treatment and outpatient follow -up, as well as potentially worrisome signs or symptoms that should prompt reevaluation in the emergency department. Departure - Departure Disposition: 01 Home, Self Care Clinical Impression: Dehydration Asthmatic bronchitis with acute exacerbation Qualifiers: Asthma severity: moderate Asthma persistence: persistent Qualified Code(s): J45.41 - Moderate persistent asthma with (acute) exacerbation Vomiting Qualifiers: Vomiting type: unspecified Vomiting Intractability: non-intractable Nausea presence: with nausea Qualified Code(s): R11.2 - Nausea with vomiting, unspecified Condition: Stable Instructions: ED Bronchitis Asthmatic Follow-Up: Da Mccall MD [Primary Care Provider] - Prescriptions: Albuterol Sulfate [Proventil Hfa Inhaler] 1 - 2 puffs INH Q4H PRN #1 inhaler PRN Reason: Shortness Of Air/Wheezing Azithromycin [Zithromax] 250 mg PO DAILY #6 tablet Inhaler, Assist Devices [Aerochamber Mini] 1 each MC PRN PRN #1 spacer PRN Reason: Wheezing Comments: Stop smoking cigarettes. Continues albuterol inhaler with spacer device 4 times daily, or even up to every 2 hours if needed for difficulty breathing. Take Zithromax daily for the next 5 days as prescribed. You can use Tylenol or ibuprofen if needed for fever or discomfort. Follow up with your primary physician within 2 weeks as scheduled. Return to the emergency department if you develop increasing difficulty breathing, persistent vomiting, recurrent dehydration, or otherwise worsening symptoms. Discharge Date/Time: 04/15/17 16:56
[2017-04-15 16:49] VITALS: BP 126/80
== END 2017-04-15 16:56 | disposition home or self-care (01) ==
LOC: ED 11:58
DX: E86.0 Dehydration (principal); J45.41 Moderate persistent asthma with (acute) exacerbation; R11.2 Nausea with vomiting, unspecified; I10 Essential (primary) hypertension; E11.9 Type 2 diabetes mellitus without complications; Z79.84 Long term (current) use of oral hypoglycemic drugs; E78.00 Pure hypercholesterolemia, unspecified; M19.90 Unspecified osteoarthritis, unspecified site; F17.200 Nicotine dependence, unspecified, uncomplicated
CPT/HCPCS: 36415; 71020; 80053; 81001; 81025; 83690; 85025; 94640; 99283; J7613; J7620; 81003; 87086

== ENCOUNTER 2017-05-05 13:07 | Outpatient (CLI) | payer MEDICAID ==
--- NOTE | 2017-05-05 14:15 | Ultrasound Report ---
ULTRASOUND LEFT LATERAL FOOT: 05/05/2017 CLINICAL INDICATION: Pain, swelling, palpable abnormality. TECHNIQUE: Real-time scanning was performed with client relations representative static images obtained. FINDINGS: Ultrasound of the left lateral foot was performed. At the site of the palpable abnormalit y, adjacent to the lateral tarsometatarsal joint, there is a periarticular cyst, measuring 1.5 x 1.4 x 0.4 cm. No sonographically suspicious findings are identified. IMPRESSION: PERIARTICULAR CYST AT THE SITE OF THE PALPABLE ABNORMALITY. JOB #: [id number] EXT JOB #:[id number]
== END 2017-05-05 13:08 | disposition home or self-care (01) ==
LOC: DI 13:07
PROVIDERS: ATTEND Family Medicine
DX: M25.872 Other specified joint disorders, left ankle and foot (principal)
CPT/HCPCS: 76882

== ENCOUNTER 2017-08-16 19:50 | Emergency (ER) | payer MEDICAID ==
--- NOTE | 2017-08-16 21:36 | ED Physician Documentation ---
PD HPI HEENT - Stated complaint Stated Complaint: LT EAR/TOOTH PX - Chief complaint Chief Complaint: Heent - History obtained from History obtained from: Patient - History of Present Illness Timing - onset: How many days ago (few) Timing - duration: Days (few) Timing - details: Gradual onset, Still present, Waxing and waning Location: Tooth (left lower molar prior significant cavity and has had infection before. Unable to get dental appt. Has pain again the past few days. Pain radiates to left ear.) Associated symptoms: Fever, Swollen nodes (mild left). No: Congestion, Trismus , Facial swelling, Headache Similar symptoms before: Diagnosis (dental infection) Recently seen: Not recently seen Review of Systems Constitutional: reports: Fever. denies: Chills Ears: reports: Ear pain. denies: Drainage/discharge Nose: denies: Rhinorrhea / runny nose, Congestion Throat: reports: Dental pain / toothache (with some drainage at times). 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 HEENT: Chronic vision loss Psych: Depression, Anxiety, Bipolar disorder, Panic attacks, ADD/ADHD, Post traumatic stress disorder, Claustrophobia, Obsessive compulsive disorder Musculoskeletal: Osteoarthritis, Chronic back pain, Other Derm: None - Past Surgical History Past Surgical History: No General: EGD - Present Medications Home Medications: Ambulatory Orders Medication Instructions Recorded Confirmed Glipizide [Glipizide ER] 5 mg PO DAILY #30 tab.er.24 08/25/16 04/15/17 Metformin HCl 1,000 mg PO BID 09/20/16 04/15/17 Albuterol Sulfate [Proventil Hfa 1 - 2 puffs INH Q4H PRN #1 inhaler 04/15/17 Inhaler] Azithromycin [Zithromax] 250 mg PO DAILY #6 tablet 04/15/17 Inhaler, Assist Devices 1 each MC PRN PRN #1 spacer 04/15/17 [Aerochamber Mini] Clindamycin HCl [Cleocin HCl] 300 mg PO TID #21 capsule 08/16/17 HYDROcod/ACETAM 5/325 [[place] 5/325] 1 tab PO Q6H PRN #18 tablet 08/16/17 Naproxen [Naprosyn] 500 mg PO BID PRN #20 tablet 08/16/17 - Allergies Allergies/Adverse Reactions: Allergies Allergy/AdvReac Type Severity Reaction Status Date / Time Sulfa (Sulfonamide Allergy Severe Anaphylaxis Verified 01/31/17 10:07 Antibiotics) amoxicillin [Amoxicillin] AdvReac Severe Edema Verified 12/23/16 21:54 clarithromycin [From Biaxin] AdvReac Severe Edema Verified 12/23/16 21:54 erythromycin base AdvReac Severe Edema Verified 12/23/16 21:54 [Erythromycin Base] Penicillins AdvReac Severe Edema Verified 12/23/16 21:54 - Social History Does the pt smoke?: Yes Smoking Status: Current every day smoker Does the pt drink ETOH?: No Does the pt have substance abuse?: No - Immunizations Immunizations are current?: Yes - POLST Patient has POLST: No PD ED PE NORMAL - Vitals Vital signs reviewed: Yes - General General: Alert and oriented X 3, No acute distress, Well developed/nourished - HEENT HEENT: Pharynx benign. No: Dentition benign (left lower molar with erosion to gumline of 2nd molar, with gum swelling and tenderness but no fluctuance. Anterior mild adenopathy. Left ear appears normal. ) Results - Vitals Vitals: Oxygen O2 Source Room air PD MEDICAL DECISION MAKING - ED course Complexity details: considered differential, d/w patient Departure - Departure Disposition: 01 Home, Self Care Clinical Impression: Dental abscess Condition: Stable Record reviewed to determine appropriate education?: Yes Instructions: ED Abscess Dental Follow-Up: Da Mccall MD [Primary Care Provider] - Prescriptions: Clindamycin HCl [Cleocin HCl] 300 mg PO TID #21 capsule HYDROcod/ACETAM 5/325 [[place] 5/325] 1 tab PO Q6H PRN #18 tablet PRN Reason: Pain Naproxen [Naprosyn] 500 mg PO BID PRN #20 tablet PRN Reason: Pain Comments: Drink lots of fluids. Antiseptic rinse in the gum and tooth area a few times a day. This can be mouthwash such as Listerine. Clindamycin 3 times a day for a week for the infection. Naproxen twice daily for inflammation. Add hydrocodone if needed for pain. Recheck if not improving over the next several days. Follow-up with a dentist as soon as he can get an appointment. Discharge Date/Time: 08/16/17 21:56
[2017-08-16] MEDS ORDERED: IBUPROFEN 600 MG TABLET PO STA (21:41)
[2017-08-16] MEDS ORDERED: HYDROcod/ACETAM 5/325 MG TABLET PO STA (21:41)
[2017-08-16] MEDS ORDERED: CLINDAMYCIN 150 MG CAPSULE PO STA (21:41)
[2017-08-16 21:58] VITALS: BP 178/104
== END 2017-08-16 21:56 | disposition home or self-care (01) ==
LOC: ED 19:50
DX: K04.7 Periapical abscess without sinus (principal); I10 Essential (primary) hypertension; E78.00 Pure hypercholesterolemia, unspecified; E11.9 Type 2 diabetes mellitus without complications; F17.200 Nicotine dependence, unspecified, uncomplicated; Z79.84 Long term (current) use of oral hypoglycemic drugs
CPT/HCPCS: 99283; A9270

== ENCOUNTER 2017-08-18 14:59 | Outpatient (CLI) | payer MEDICAID ==
[2017-08-18 18:54] LABS: CALCIUM 8.6 mg/dL (8.5-10.3); CREATININE 0.5 mg/dL (0.4-1.0)
[2017-08-18 19:03] LABS: HB2 TOTAL 15.6 g/dL; HEMOGLOBIN A1C 0.89 g/dL; HEMOGLOBIN A1C % 7.4 % (4.6-6.2)
== END 2017-08-18 15:00 | disposition home or self-care (01) ==
LOC: LAB.N 14:59
PROVIDERS: ATTEND Family Medicine
DX: E11.9 Type 2 diabetes mellitus without complications (principal)
CPT/HCPCS: 36415; 80048; 83036

== ENCOUNTER 2018-02-06 08:00 | Outpatient (CLI) | payer MEDICAID ==
[2018-02-06 19:41] LABS: CALCIUM 8.8 mg/dL (8.5-10.3); CREATININE 0.6 mg/dL (0.4-1.0)
[2018-02-06 20:36] LABS: HB2 TOTAL 15.4 g/dL; HEMOGLOBIN A1C 0.91 g/dL; HEMOGLOBIN A1C % 7.6 % (4.6-6.2)
== END 2018-02-06 08:01 | disposition home or self-care (01) ==
LOC: LAB.N 08:00
PROVIDERS: ATTEND Family Medicine
DX: E11.9 Type 2 diabetes mellitus without complications (principal)
CPT/HCPCS: 36415; 80048; 83036

== ENCOUNTER 2018-03-10 12:43 | Outpatient (CLI) | payer MEDICAID ==
--- NOTE | 2018-03-10 14:00 | XRAY Report ---
Reason: FOOT PAIN,RIGHT Procedure Date: 03/10/2018 Accession Number: [id number] / [id number] Procedure: XR - Foot 3 View RT CPT Code: FULL RESULT: EXAM: RIGHT FOOT RADIOGRAPHY EXAM DATE: 03/10/2018 01:06 PM. CLINICAL HISTORY: FOOT PAIN,RIGHT. COMPARISON: Right foot 03/10/2010. TECHNIQUE: 3 views. FINDINGS: Bones: No fractures or bone lesions. There is a moderate calcaneal spur at the insertion of the plantar fascia. Joints: No subluxations. Soft Tissues: No soft tissue swelling. IMPRESSION: Calcaneal spur. No acute bone findings. RADIA
== END 2018-03-10 12:44 | disposition home or self-care (01) ==
LOC: DI 12:43
PROVIDERS: ATTEND Family Medicine
DX: M77.31 Calcaneal spur, right foot (principal)

== ENCOUNTER 2018-05-26 08:00 | Outpatient (CLI) | payer MEDICAID ==
[2018-05-26 19:32] LABS: CALCIUM 8.9 mg/dL (8.5-10.3); CREATININE 0.6 mg/dL (0.4-1.0)
[2018-05-26 19:34] LABS: HB2 TOTAL 15.9 g/dL; HEMOGLOBIN A1C 1.13 g/dL; HEMOGLOBIN A1C % 8.7 % (4.6-6.2)
== END 2018-05-26 23:59 ==
LOC: LAB.N 08:00
PROVIDERS: ATTEND Family Medicine
DX: E11.9 Type 2 diabetes mellitus without complications (principal)
CPT/HCPCS: 36415; 80048; 83036

== ENCOUNTER 2018-06-10 23:33 | Emergency (ER) | payer MEDICAID ==
[2018-06-10 23:38] VITALS: BP 177/117
--- NOTE | 2018-06-10 23:45 | ED Physician Documentation ---
PD HPI OPHTHO - Stated complaint Stated Complaint: L EYE PAIN - Chief complaint Chief Complaint: Heent - History obtained from History obtained from: Patient - History of Present Illness Timing - onset: Today Timing - details: Gradual onset Location: Left Quality / character: Burning Associated symptoms: Redness, Discharge. No: Swelling, FB sensation, Photophobia, Double vision, Decreased vision, Loss of vision, Headache Contributing factors: No: FB, Wears glasses, Wears contacts Recently seen: Not recently seen - Additional information Additional information: since earlier today, has had sensation of left ear being "clogged" (per patient) and noted "little bit of blood" on Q-tip. her chief complaint is left eye redness, irritation, thick yellow/green discharge since earlier today. Denies injury, denies FB sensation Review of Systems Constitutional: denies: Fever, Chills, Sweats Eyes: reports: Discharge, Irritation. 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 HEENT: Chronic vision loss Psych: Depression, Anxiety, Bipolar disorder, Panic attacks, ADD/ADHD, Post traumatic stress disorder, Claustrophobia, Obsessive compulsive disorder Musculoskeletal: Osteoarthritis, Chronic back pain, Other Derm: None - Past Surgical History Past Surgical History: Yes General: Cholecystectomy, EGD - Present Medications Home Medications: Ambulatory Orders Medication Instructions Recorded Confirmed Glipizide [Glipizide ER] 5 mg PO DAILY #30 tab.er.24 08/25/16 04/15/17 Metformin HCl 1,000 mg PO BID 09/20/16 04/15/17 Albuterol Sulfate [Proventil Hfa 1 - 2 puffs INH Q4H PRN #1 inhaler 04/15/17 Inhaler] Azithromycin [Zithromax] 250 mg PO DAILY #6 tablet 04/15/17 Inhaler, Assist Devices 1 each MC PRN PRN #1 spacer 04/15/17 [Aerochamber Mini] Clindamycin HCl [Cleocin HCl] 300 mg PO TID #21 capsule 08/16/17 HYDROcod/ACETAM 5/325 [[place] 5/325] 1 tab PO Q6H PRN #18 tablet 08/16/17 Naproxen [Naprosyn] 500 mg PO BID PRN #20 tablet 08/16/17 - Allergies Allergies/Adverse Reactions: Allergies Allergy/AdvReac Type Severity Reaction Status Date / Time Sulfa (Sulfonamide Allergy Severe Anaphylaxis Verified 06/10/18 23:38 Antibiotics) amoxicillin [Amoxicillin] AdvReac Severe Edema Verified 06/10/18 23:38 clarithromycin [From Biaxin] AdvReac Severe Edema Verified 06/10/18 23:38 erythromycin base AdvReac Severe Edema Verified 06/10/18 23:38 [Erythromycin Base] Penicillins AdvReac Severe Edema Verified 06/10/18 23:38 - Social History Does the pt smoke?: Yes Smoking Status: Current every day smoker Does the pt drink ETOH?: No Does the pt have substance abuse?: No - Immunizations Immunizations are current?: Yes - POLST Patient has POLST: No PD ED PE NORMAL - Vitals Vital signs reviewed: Yes - General General: Alert and oriented X 3, No acute distress, Well developed/nourished - HEENT HEENT: PERRL, EOMI, Ears normal PD ED PE EXPANDED - Eyes Eyes: Left eye, Normal eyelids, Injected conj/sclera (trace scleral edema (later al aspect)), Exudate Results - Vitals Vitals: Vital Signs - 24 hr 06/10/18 23:34 Temperature 36.2 C L Heart Rate 109 H Respiratory 18 Rate Blood Pressure 177/117 H O2 Saturation 99 Oxygen O2 Source Room air PD MEDICAL DECISION MAKING - ED course Complexity details: considered differential, d/w patient Departure - Departure Disposition: 01 Home, Self Care Clinical Impression: Conjunctivitis Condition: Good Instructions: ED Conjunctivitis Nonspecific Follow-Up: Da Mccall MD [Primary Care Provider] - (3-5 days if symptoms do not improve) Comments: Use the antibiotic drops as follows: 1 drop in left eye four times per day for 5 days Discharge Date/Time: 06/11/18 00:18
[2018-06-11] MEDS ORDERED: POLYMYXIN B/TRIMETH OPHTH DROPS LEFTEYE STA (00:03)
== END 2018-06-11 00:18 | disposition home or self-care (01) ==
LOC: ED 23:33
DX: H10.9 Unspecified conjunctivitis (principal); I10 Essential (primary) hypertension; E78.00 Pure hypercholesterolemia, unspecified; E11.9 Type 2 diabetes mellitus without complications; Z79.84 Long term (current) use of oral hypoglycemic drugs; F17.200 Nicotine dependence, unspecified, uncomplicated
CPT/HCPCS: 99282; 99283; A9270

== ENCOUNTER 2019-08-27 14:37 | Outpatient (CLI) | payer MEDICAID ==
[2019-08-27 18:48] LABS: BASOPHILS % (AUTO) 0.5 %; EOSINOPHILS # (AUTO) 0.3 10^3/uL (0.0-0.7); EOSINOPHILS % (AUTO) 3.8 %; HGB - HEMOGLOBIN 14.2 g/dL (12.0-16.0); LYMPHOCYTES # (AUTO) 3.1 10^3/uL (1.5-3.5); LYMPHOCYTES % (AUTO) 39.5 %; MEAN CORPUSCULAR HEMOGLOBIN 30.3 pg (27.0-31.0); MEAN CORPUSCULAR HGB CONC 33.2 g/dL (32.0-36.0); MEAN CORPUSCULAR VOLUME 91.5 fL (81.0-99.0); MEAN PLATELET VOLUME 9.8 fL (7.9-10.8); MONOCYTES # (AUTO) 0.4 10^3/uL (0.0-1.0); MONOCYTES % (AUTO) 5.7 %; NEUTROPHILS # (AUTO) 3.9 10^3/uL (1.5-6.6); NEUTROPHILS % (AUTO) 50.1 %; PLT - PLATELET COUNT 278 10^3/uL (130-450); RED BLOOD COUNT 4.68 10^6/uL (4.20-5.40); RED CELL DISTRIBUTION WIDTH 12.4 % (12.0-15.0); WHITE BLOOD COUNT 7.7 x10^3/uL (4.8-10.8)
[2019-08-27 18:52] LABS: ALBUMIN 4.1 g/dL (3.2-5.5); ALBUMIN/GLOBULIN RATIO 1.5 (1.0-2.2); BILIRUBIN,TOTAL 0.4 mg/dL (0.2-1.0); CALCIUM 8.6 mg/dL (8.5-10.3); CREATININE 0.6 mg/dL (0.4-1.0); TOTAL PROTEIN 6.9 g/dL (6.7-8.2)
[2019-08-27 19:12] LABS: CREATININE,URINE 79.9 mg/dL
[2019-08-27 19:18] LABS: HB2 TOTAL 14.9 g/dL; HEMOGLOBIN A1C 1.02 g/dL; HEMOGLOBIN A1C % 8.4 % (4.6-6.2)
[2019-08-27 19:28] LABS: MICROALBUMIN,URINE < 0.2 mg/dL (0-300.0)
== END 2019-08-27 23:59 ==
LOC: LAB.N 14:37
PROVIDERS: ATTEND Physician Assistant Medical
DX: E11.65 Type 2 diabetes mellitus with hyperglycemia (principal)
CPT/HCPCS: 36415; 80053; 82043; 82570; 83036; 85025

== ENCOUNTER 2020-09-25 13:22 | Outpatient (CLI) | payer MEDICAID ==
[2020-09-25 17:39] LABS: BASOPHILS # (AUTO) 0.1 10^3/uL (0.0-0.1); BASOPHILS % (AUTO) 0.6 %; EOSINOPHILS # (AUTO) 0.3 10^3/uL (0.0-0.7); EOSINOPHILS % (AUTO) 3.3 %; HCT - HEMATOCRIT 44.4 % (37.0-47.0); HGB - HEMOGLOBIN 14.6 g/dL (12.0-16.0); LYMPHOCYTES # (AUTO) 2.8 10^3/uL (1.5-3.5); LYMPHOCYTES % (AUTO) 34.4 %; MEAN CORPUSCULAR HEMOGLOBIN 30.2 pg (27.0-31.0); MEAN CORPUSCULAR HGB CONC 32.9 g/dL (32.0-36.0); MEAN CORPUSCULAR VOLUME 91.7 fL (81.0-99.0); MEAN PLATELET VOLUME 9.8 fL (7.9-10.8); MONOCYTES # (AUTO) 0.4 10^3/uL (0.0-1.0); MONOCYTES % (AUTO) 5.2 %; NEUTROPHILS # (AUTO) 4.6 10^3/uL (1.5-6.6); NEUTROPHILS % (AUTO) 56.3 %; PLT - PLATELET COUNT 287 10^3/uL (130-450); RED BLOOD COUNT 4.84 10^6/uL (4.20-5.40); RED CELL DISTRIBUTION WIDTH 12.7 % (12.0-15.0); WHITE BLOOD COUNT 8.1 x10^3/uL (4.8-10.8)
[2020-09-25 17:58] LABS: ALBUMIN 4.4 g/dL (3.2-5.5); ALBUMIN/GLOBULIN RATIO 1.5 (1.0-2.2); ALKALINE PHOSPHATASE 89 IU/L (42-121); ALT ALANINE AMINOTRANSFERASE 32 IU/L (10-60); AST ASPARTATE AMINOTRANSFERASE 23 IU/L (10-42); BILIRUBIN,TOTAL 0.7 mg/dL (0.2-1.0); BUN - BLOOD UREA NITROGEN 11 mg/dL (6-20); CALCIUM 9.2 mg/dL (8.5-10.3); CARBON DIOXIDE - CO2 27 mmol/L (21-32); CHLORIDE 104 mmol/L (101-111); CHOL/HDL RATIO 4.9 (<4.4); CHOLESTEROL 193 mg/dL; CREATININE 0.6 mg/dL (0.4-1.0); GFR - MDRD 112 (>89); GLUCOSE 119 mg/dL (70-100); HDL CHOLESTEROL 39 mg/dL; LDL CHOLESTEROL,CALCULATED 126 mg/dL; LDL/HDL RATIO 3.2 (<4.4); POTASSIUM 4.1 mmol/L (3.5-5.0); SODIUM 138 mmol/L (135-145); TOTAL PROTEIN 7.4 g/dL (6.7-8.2); TRIGLYCERIDES 138 mg/dL; VLDL CHOLESTEROL 28 mg/dL
[2020-09-25 18:13] LABS: THYROID STIMULATING HORMONE 1.65 uIU/mL (0.34-5.60)
[2020-09-25 20:31] LABS: ESTIMATED AVERAGE GLUCOSE 171 mg/dL (70-100); HEMOGLOBIN A1c% 7.6 % (4.27-6.07)
== END 2020-09-25 23:59 | disposition home or self-care (01) ==
LOC: LAB.WCP 13:22
PROVIDERS: ATTEND Family Medicine
DX: E11.9 Type 2 diabetes mellitus without complications (principal)
CPT/HCPCS: 36415; 80050; 80061; 82043; 82570; 83036; 83721

== ENCOUNTER 2020-11-29 00:07 | Emergency (ER) | payer MEDICAID ==
--- NOTE | 2020-11-29 01:42 | ED Physician Documentation ---
History of Present Illness - Stated complaint Stated Complaint: SZ/LT ARM WEAKNESS - Chief complaint Chief Complaint: Neuro - History obtained from History obtained from: Patient - History of Present Illness Timing: Enter time (20:00), Today Pain level max: 0 Pain level now: 0 Improved by: no apparent ameliorating factors but has resolved on its own Worsened by: no exacerbating factors - Additonal information Additional information: Patient presents due to an episode that she refers to as a seizure. She says she has episodes like this before but has not been diagnosed with seizure. She does not think shes ever been worked up for seizure, has not had EEG. Tonight, at 8 PM, she was at home and became acutely anxious and experienced generalized shaking of her entire body. She did not lose consciousness, and was able to call her mother during the shaking episode. The patient is not sure if she lost consciousness. her mother came to help the patient, and found patient was sitting on the porch but exhibiting generalized shaking, was sitting up unsupported, and was conversant and providing appropriate answers. Patient presents after the shaking behavior has stopped, she says she has left upper extremity paresthesias. Review of Systems Constitutional: reports: Reviewed and negative Eyes: reports: Reviewed and negative Cardiac: reports: Reviewed and negative Respiratory: reports: Reviewed and negative GI: reports: Reviewed and negative Neurologic: reports: Numbness. 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 HEENT: Chronic vision loss Psych: Depression, Anxiety, Bipolar disorder, Panic attacks, ADD/ADHD, Post traumatic stress disorder, Claustrophobia, Obsessive compulsive disorder Musculoskeletal: Osteoarthritis, Chronic back pain, Other Derm: None - Past Surgical History Past Surgical History: Yes General: Cholecystectomy, EGD - Present Medications Home Medications: Ambulatory Orders Medication Instructions Recorded Confirmed Glipizide [Glipizide ER] 5 mg PO DAILY #30 tab.er.24 08/25/16 04/15/17 Metformin HCl 1,000 mg PO BID 09/20/16 04/15/17 Albuterol Sulfate [Proventil Hfa 1 - 2 puffs INH Q4H PRN #1 inhaler 04/15/17 Inhaler] Inhaler, Assist Devices 1 each MC PRN PRN #1 spacer 04/15/17 [Aerochamber Mini] - Allergies Allergies/Adverse Reactions: Allergies Allergy/AdvReac Type Severity Reaction Status Date / Time Sulfa (Sulfonamide Allergy Severe Anaphylaxis Verified 11/29/20 00:31 Antibiotics) amoxicillin [Amoxicillin] AdvReac Severe Edema Verified 11/29/20 00:31 clarithromycin [From Biaxin] AdvReac Severe Edema Verified 11/29/20 00:31 erythromycin base AdvReac Severe Edema Verified 11/29/20 00:31 [Erythromycin Base] Penicillins AdvReac Severe Edema Verified 11/29/20 00:31 - Social History Does the pt smoke?: Yes Smoking Status: Current every day smoker Does the pt drink ETOH?: No Does the pt have substance abuse?: No - Immunizations Immunizations are current?: Yes - POLST Patient has POLST: No PD ED PE NORMAL - Vitals Vital signs reviewed: Yes - General General: Alert and oriented X 3, No acute distress, Other (morbidly obese) - HEENT HEENT: Moist mucous membranes - Neck Neck: Supple, no meningeal sign - Cardiac Cardiac: RRR, No murmur - Respiratory Respiratory: No respiratory distress, Clear bilaterally - Abdomen Abdomen: Soft, Non tender - Neuro Neuro: Alert and oriented X 3, central supply aide 2-12 intact Eye Opening: Spontaneous Motor: Obeys Commands Verbal: Oriented GCS Score: 15 Results - Vitals Vitals: Oxygen O2 Source Room air - EKG (time done) No standard instances Rate: Rate (enter#) (95) Rhythm: NSR [place]: Normal Intervals: Normal [place] QRS: Normal Ischemia: Normal ST segments - Labs Labs: Laboratory Tests 11/29/20 11/29/20 02:41 02:41 WBC 13.5 H RBC 5.17 Hgb 15.8 Hct 46.7 MCV 90.3 MCH 30.6 MCHC 33.8 RDW 12.6 Plt Count 308 MPV 8.7 Neut # (Auto) 7.8 H Lymph # (Auto) 4.6 H [place] # (Auto) 0.8 Eos # (Auto) 0.2 Baso # (Auto) 0.0 Absolute Nucleated RBC 0.00 Nucleated RBC % 0.0 Sodium 141 Potassium 3.7 Chloride 100 L Carbon Dioxide 29 Anion Gap 12.0 BUN 10 Creatinine 0.8 Estimated GFR (MDRD) 81 L Glucose 89 Calcium 9.2 - Rads (name of study) CT head Radiology: Prelim report reviewed, See rad report PD MEDICAL DECISION MAKING - ED course Complexity details: reviewed results, re-evaluated patient, considered differential, d/w patient Departure - Departure Disposition: 01 Home, Self Care Clinical Impression: Paresthesia of left arm Condition: Good Instructions: ED Near Syncope Unkn, ED Paraesthesias Discharge Date/Time: 11/29/20 04:24
[2020-11-29 02:46] LABS: BASOPHILS % (AUTO) 0.3 %; EOSINOPHILS # (AUTO) 0.2 10^3/uL (0.0-0.7); EOSINOPHILS % (AUTO) 1.6 %; HCT - HEMATOCRIT 46.7 % (37.0-47.0); HGB - HEMOGLOBIN 15.8 g/dL (12.0-16.0); LYMPHOCYTES # (AUTO) 4.6 10^3/uL (1.5-3.5); LYMPHOCYTES % (AUTO) 34.1 %; MEAN CORPUSCULAR HEMOGLOBIN 30.6 pg (27.0-31.0); MEAN CORPUSCULAR HGB CONC 33.8 g/dL (32.0-36.0); MEAN CORPUSCULAR VOLUME 90.3 fL (81.0-99.0); MEAN PLATELET VOLUME 8.7 fL (7.9-10.8); MONOCYTES # (AUTO) 0.8 10^3/uL (0.0-1.0); MONOCYTES % (AUTO) 6.2 %; NEUTROPHILS # (AUTO) 7.8 10^3/uL (1.5-6.6); NEUTROPHILS % (AUTO) 57.7 %; PLT - PLATELET COUNT 308 10^3/uL (130-450); RED BLOOD COUNT 5.17 10^6/uL (4.20-5.40); RED CELL DISTRIBUTION WIDTH 12.6 % (12.0-15.0); WHITE BLOOD COUNT 13.5 x10^3/uL (4.8-10.8)
[2020-11-29 02:58] LABS: CALCIUM 9.2 mg/dL (8.5-10.3); CREATININE 0.8 mg/dL (0.4-1.0); POTASSIUM 3.7 mmol/L (3.5-5.0)
[2020-11-29 04:14] VITALS: BP 138/89
--- NOTE | 2020-11-29 09:48 | CT Report ---
PROCEDURE: HEAD WO INDICATIONS: head injury, seizure-like activity TECHNIQUE: Noncontrast 4.5 mm thick angled axial sections acquired from the foramen magnum to the vertex. For r adiation dose reduction, the following was used: automated exposure control, adjustment of mA and/or kV according to patient size. COMPARISON: None. FINDINGS: Image quality: Excellent. CSF spaces: Basal cisterns are patent. No extra-axial fluid collections. Ventricles are normal in size and shape. Brain: No midline shift. No intracranial masses or hemorrhage. [place]-white matter interface is norm al. Skull and face: Calvarium and visualized facial bones are intact, without suspicious lesions. Sinuses: Visualized sinuses and mastoids are clear. IMPRESSION: No trauma found. Reviewed by: Jose Carlos Norris MD on 11/29/2020 8:46 AM SIDNEY Approved by: Jose Carlos Norris MD on 11/29/2020 8:46 AM SIDNEY Station ID: [id number]
== END 2020-11-29 04:24 | disposition home or self-care (01) ==
LOC: ED 00:07
DX: R20.2 Paresthesia of skin (principal); F41.9 Anxiety disorder, unspecified; I10 Essential (primary) hypertension; E11.9 Type 2 diabetes mellitus without complications; Z79.84 Long term (current) use of oral hypoglycemic drugs; F17.200 Nicotine dependence, unspecified, uncomplicated; E66.01 Morbid (severe) obesity due to excess calories; Z68.41 Body mass index [BMI] 40.0-44.9, adult
CPT/HCPCS: 36415; 80048; 85025; 93005; 99284

== ENCOUNTER 2021-03-30 13:44 | Outpatient (CLI) | payer MEDICAID ==
[2021-03-30 18:32] LABS: CALCIUM 9.5 mg/dL (8.5-10.3); CREATININE 0.6 mg/dL (0.4-1.0); POTASSIUM 4.4 mmol/L (3.5-5.0)
[2021-03-30 18:43] LABS: MICROALBUM/CREATININE RATIO,UR 7.6 ug/mg (<30.0); MICROALBUMIN,URINE 1.4 mg/dL (0-300.0)
[2021-03-30 19:58] LABS: ESTIMATED AVERAGE GLUCOSE 157 mg/dL (70-100); HEMOGLOBIN A1c% 7.1 % (4.27-6.07)
== END 2021-03-30 23:59 | disposition home or self-care (01) ==
LOC: LAB.WCP 13:44
PROVIDERS: ATTEND Family Medicine
DX: E66.01 Morbid (severe) obesity due to excess calories (principal); I10 Essential (primary) hypertension; E11.8 Type 2 diabetes mellitus with unspecified complications
CPT/HCPCS: 36415; 80048; 82043; 82570; 83036

== ENCOUNTER 2021-07-08 08:00 | Outpatient (CLI) | payer MEDICAID ==
[2021-07-08 12:17] LABS: BASOPHILS # (AUTO) 0.1 10^3/uL (0.0-0.1); BASOPHILS % (AUTO) 0.7 %; EOSINOPHILS # (AUTO) 0.2 10^3/uL (0.0-0.7); EOSINOPHILS % (AUTO) 2.4 %; HCT - HEMATOCRIT 45.8 % (37.0-47.0); HGB - HEMOGLOBIN 15.7 g/dL (12.0-16.0); LYMPHOCYTES # (AUTO) 3.4 10^3/uL (1.5-3.5); MEAN CORPUSCULAR HEMOGLOBIN 30.8 pg (27.0-31.0); MEAN CORPUSCULAR HGB CONC 34.3 g/dL (32.0-36.0); MEAN CORPUSCULAR VOLUME 89.8 fL (81.0-99.0); MEAN PLATELET VOLUME 9.5 fL (7.9-10.8); MONOCYTES # (AUTO) 0.7 10^3/uL (0.0-1.0); MONOCYTES % (AUTO) 7.5 %; NEUTROPHILS # (AUTO) 5.4 10^3/uL (1.5-6.6); NEUTROPHILS % (AUTO) 55.1 %; PLT - PLATELET COUNT 333 10^3/uL (130-450); RED CELL DISTRIBUTION WIDTH 12.3 % (12.0-15.0); WHITE BLOOD COUNT 9.9 x10^3/uL (4.8-10.8)
[2021-07-08 12:37] LABS: ALBUMIN 4.6 g/dL (3.2-5.5); ALBUMIN/GLOBULIN RATIO 1.4 (1.0-2.2); ALKALINE PHOSPHATASE 67 IU/L (42-121); ALT ALANINE AMINOTRANSFERASE 46 IU/L (10-60); AST ASPARTATE AMINOTRANSFERASE 31 IU/L (10-42); BUN - BLOOD UREA NITROGEN 12 mg/dL (6-20); CALCIUM 9.4 mg/dL (8.5-10.3); CARBON DIOXIDE - CO2 26 mmol/L (21-32); CHLORIDE 100 mmol/L (101-111); CHOL/HDL RATIO 5.9 (<4.4); CHOLESTEROL 183 mg/dL; CREATININE 0.6 mg/dL (0.4-1.0); GFR - MDRD 112 (>89); GLUCOSE 181 mg/dL (70-100); HDL CHOLESTEROL 31 mg/dL; LDL CHOLESTEROL,CALCULATED 130 mg/dL; LDL/HDL RATIO 4.2 (<4.4); LIPASE 26 U/L (22-51); POTASSIUM 3.9 mmol/L (3.5-5.0); SODIUM 136 mmol/L (135-145); TOTAL PROTEIN 7.8 g/dL (6.7-8.2); TRIGLYCERIDES 108 mg/dL; VLDL CHOLESTEROL 22 mg/dL
[2021-07-08 12:41] LABS: THYROID STIMULATING HORMONE 2.58 uIU/mL (0.34-5.60)
== END 2021-07-08 23:59 ==
LOC: LAB.WCP 08:00
PROVIDERS: ATTEND Physician Assistant Medical
DX: E11.8 Type 2 diabetes mellitus with unspecified complications (principal); E78.5 Hyperlipidemia, unspecified; R11.2 Nausea with vomiting, unspecified; I10 Essential (primary) hypertension
CPT/HCPCS: 36415; 80050; 80061; 83690; 83721

== ENCOUNTER 2021-07-17 08:00 | Outpatient (CLI) | payer MEDICAID ==
[2021-07-17 17:54] LABS: BASOPHILS % (AUTO) 0.6 %; EOSINOPHILS # (AUTO) 0.2 10^3/uL (0.0-0.7); EOSINOPHILS % (AUTO) 3.2 %; HCT - HEMATOCRIT 41.3 % (37.0-47.0); HGB - HEMOGLOBIN 13.9 g/dL (12.0-16.0); LYMPHOCYTES # (AUTO) 2.6 10^3/uL (1.5-3.5); LYMPHOCYTES % (AUTO) 37.9 %; MEAN CORPUSCULAR HEMOGLOBIN 30.9 pg (27.0-31.0); MEAN CORPUSCULAR HGB CONC 33.7 g/dL (32.0-36.0); MEAN CORPUSCULAR VOLUME 91.8 fL (81.0-99.0); MEAN PLATELET VOLUME 9.8 fL (7.9-10.8); MONOCYTES # (AUTO) 0.4 10^3/uL (0.0-1.0); MONOCYTES % (AUTO) 6.5 %; NEUTROPHILS # (AUTO) 3.5 10^3/uL (1.5-6.6); NEUTROPHILS % (AUTO) 51.7 %; PLT - PLATELET COUNT 271 10^3/uL (130-450); RED CELL DISTRIBUTION WIDTH 12.4 % (12.0-15.0); WHITE BLOOD COUNT 6.8 x10^3/uL (4.8-10.8)
[2021-07-17 18:01] LABS: ALBUMIN 3.8 g/dL (3.2-5.5); ALBUMIN/GLOBULIN RATIO 1.4 (1.0-2.2); BILIRUBIN,TOTAL 0.4 mg/dL (0.2-1.0); CALCIUM 8.7 mg/dL (8.5-10.3); CREATININE 0.5 mg/dL (0.4-1.0); POTASSIUM 3.9 mmol/L (3.5-5.0); TOTAL PROTEIN 6.5 g/dL (6.7-8.2)
[2021-07-17 21:07] LABS: ESTIMATED AVERAGE GLUCOSE 169 mg/dL (70-100); HEMOGLOBIN A1c% 7.5 % (4.27-6.07)
== END 2021-07-17 23:59 | disposition home or self-care (01) ==
LOC: LAB.WCP 08:00
PROVIDERS: ATTEND Nurse Practitioner
DX: R10.9 Unspecified abdominal pain (principal); E11.8 Type 2 diabetes mellitus with unspecified complications
CPT/HCPCS: 36415; 80053; 83036; 85025

== ENCOUNTER 2021-07-21 13:31 | Emergency (ER) | payer MEDICAID ==
[2021-07-21 14:42] LABS: BASOPHILS # (AUTO) 0.1 10^3/uL (0.0-0.1); BASOPHILS % (AUTO) 0.8 %; EOSINOPHILS # (AUTO) 0.3 10^3/uL (0.0-0.7); HCT - HEMATOCRIT 43.8 % (37.0-47.0); HGB - HEMOGLOBIN 14.6 g/dL (12.0-16.0); LYMPHOCYTES # (AUTO) 2.3 10^3/uL (1.5-3.5); LYMPHOCYTES % (AUTO) 30.9 %; MEAN CORPUSCULAR HEMOGLOBIN 30.2 pg (27.0-31.0); MEAN CORPUSCULAR HGB CONC 33.3 g/dL (32.0-36.0); MEAN CORPUSCULAR VOLUME 90.5 fL (81.0-99.0); MONOCYTES # (AUTO) 0.4 10^3/uL (0.0-1.0); MONOCYTES % (AUTO) 5.8 %; NEUTROPHILS # (AUTO) 4.3 10^3/uL (1.5-6.6); NEUTROPHILS % (AUTO) 58.2 %; PLT - PLATELET COUNT 262 10^3/uL (130-450); RED BLOOD COUNT 4.84 10^6/uL (4.20-5.40); RED CELL DISTRIBUTION WIDTH 12.3 % (12.0-15.0); WHITE BLOOD COUNT 7.4 x10^3/uL (4.8-10.8)
[2021-07-21 14:55] LABS: ALBUMIN 4.2 g/dL (3.2-5.5); ALBUMIN/GLOBULIN RATIO 1.4 (1.0-2.2); BILIRUBIN,TOTAL 0.5 mg/dL (0.2-1.0); CALCIUM 9.3 mg/dL (8.5-10.3); CREATININE 0.7 mg/dL (0.4-1.0); POTASSIUM 4.2 mmol/L (3.5-5.0); TOTAL PROTEIN 7.3 g/dL (6.7-8.2)
--- NOTE | 2021-07-21 15:26 | ED Physician Documentation ---
PD HPI ABD PAIN - Stated complaint Stated Complaint: NAUSEA,RT SIDE PX - Chief complaint Chief Complaint: Abd Pain - History obtained from History obtained from: Patient - History of Present Illness Quality: Aching, Pain Location: RLQ Radiation: Right flank Improved by: No: Eating, Laying still, Vomiting, BM, Position, Meds Worsened by: Palpation. No: Eating, Moving, Breathing, Position Associated symptoms: No: Fever, Nausea, Vomiting, Hematemesis, Diarrhea, Constipation, Melena, Hematochezia, Dysuria Recently seen: Not recently seen - Additional information Additional information: Patient is a 36-year-old female who complains of abdominal pain, nausea, vomiting. She is scheduled to see GI in 2 weeks for this. Patient is a 36-year-old female who presents to the emergency department with several weeks of ongoing abdominal pain, nausea and vomiting. Had diarrhea initially but this is since resolved. She is scheduled for a follow-up appointment with GI in about 3 weeks. She was told by her doctor to come here for IV fluids for "dehydration". She is also awaiting a CT scan. She states that the right lower quadrant abdominal pain has gotten progressively worse. Review of Systems Ten Systems: 10 systems reviewed and negative Constitutional: denies: Fever, Chills Ears: denies: Ear pain Nose: denies: Rhinorrhea / runny nose, Congestion Respiratory: denies: Cough GI: reports: Nausea, Vomiting. 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 HEENT: Chronic vision loss Psych: Depression, Anxiety, Bipolar disorder, Panic attacks, ADD/ADHD, Post traumatic stress disorder, Claustrophobia, Obsessive compulsive disorder Musculoskeletal: Osteoarthritis, Chronic back pain, Other Derm: None - Past Surgical History Past Surgical History: Yes General: Cholecystectomy, EGD - Present Medications Home Medications: Ambulatory Orders Medication Instructions Recorded Confirmed Glipizide [Glipizide ER] 5 mg PO DAILY #30 tab.er.24 08/25/16 04/15/17 Metformin HCl 1,000 mg PO BID 09/20/16 04/15/17 Albuterol Sulfate [Proventil Hfa 1 - 2 puffs INH Q4H PRN #1 inhaler 04/15/17 Inhaler] Inhaler, Assist Devices 1 each MC PRN PRN #1 spacer 04/15/17 [Aerochamber Mini] Ondansetron Odt [Zofran] 4 mg TL Q6H PRN #20 tablet 07/21/21 - Allergies Allergies/Adverse Reactions: Allergies Allergy/AdvReac Type Severity Reaction Status Date / Time Sulfa (Sulfonamide Allergy Severe Anaphylaxis Verified 07/21/21 13:43 Antibiotics) amoxicillin [Amoxicillin] AdvReac Severe Edema Verified 07/21/21 13:43 clarithromycin [From Biaxin] AdvReac Severe Edema Verified 07/21/21 13:43 erythromycin base AdvReac Severe Edema Verified 07/21/21 13:43 [Erythromycin Base] Penicillins AdvReac Severe Edema Verified 07/21/21 13:43 - Social History Does the pt smoke?: Yes Smoking Status: Current every day smoker Does the pt drink ETOH?: No Does the pt have substance abuse?: No - Immunizations Immunizations are current?: Yes - POLST Patient has POLST: No PD ED PE NORMAL - Vitals Vital signs reviewed: Yes - General General: Alert and oriented X 3, No acute distress - HEENT HEENT: PERRL - Neck Neck: Supple, no meningeal sign - Cardiac Cardiac: RRR - Respiratory Respiratory: No respiratory distress, Clear bilaterally - Abdomen Abdomen: Soft, Non distended, Other (Mild tenderness to palpation right lower quadrant. No peritoneal signs) - Back Back: No CVA TTP, No spinal TTP - Derm Derm: Warm and dry - Extremities Extremities: No edema - Neuro Neuro: Alert and oriented X 3 - Psych Psych: Normal mood, Normal affect Results - Vitals Vitals: Vital Signs - 24 hr 07/21/21 07/21/21 07/21/21 13:38 16:29 18:12 Temperature 36.4 C L 36.6 C Heart Rate 89 72 74 Respiratory 16 16 16 Rate Blood Pressure 148/98 H 136/91 H 158/107 H O2 Saturation 100 100 100 Oxygen O2 Source Room air - Labs Labs: Laboratory Tests 07/21/21 07/21/21 07/21/21 14:38 14:38 18:18 WBC 7.4 RBC 4.84 Hgb 14.6 Hct 43.8 MCV 90.5 MCH 30.2 MCHC 33.3 RDW 12.3 Plt Count 262 MPV 9.0 Neut # (Auto) 4.3 Lymph # (Auto) 2.3 [place] # (Auto) 0.4 Eos # (Auto) 0.3 Baso # (Auto) 0.1 Absolute Nucleated RBC 0.00 Nucleated RBC % 0.0 Sodium 137 Potassium 4.2 Chloride 100 L Carbon Dioxide 28 Anion Gap 9.0 BUN 7 Creatinine 0.7 Estimated GFR (MDRD) 94 Glucose 169 H Calcium 9.3 Total Bilirubin 0.5 AST 21 ALT 36 Alkaline Phosphatase 73 Total Protein 7.3 Albumin 4.2 Globulin 3.1 Albumin/Globulin Ratio 1.4 Lipase 21 L Urine Color YELLOW Urine Clarity CLEAR Urine pH 7.0 Ur Specific [place] 1.010 Urine Protein NEGATIVE Urine Glucose (UA) NEGATIVE Urine Ketones NEGATIVE Urine Occult Blood NEGATIVE Urine Nitrite NEGATIVE Urine Bilirubin NEGATIVE Urine Urobilinogen 0.2 (NORMAL) Ur Leukocyte Esterase NEGATIVE Ur Microscopic Review NOT INDICATED Urine Culture Comments NOT INDICATED PD MEDICAL DECISION MAKING - ED course Complexity details: reviewed results, re-evaluated patient, considered differential, d/w patient ED course: 36-year-old female with ongoing GI issues, awaiting appointment with GI. No acute findings on CT scan to explain her symptoms. No significant lab abnormali ties. Feels better after IV fluids. Will prescribe Zofran for home. Patient counseled regarding the cystic-appearing lesion on the left kidney. She will follow up with her doctor for renal ultrasound We will have her follow-up with her doctor for further care. Patient counseled regarding signs and symptoms for which I believe and urgent re-evaluation would be necessary. Patient with good understanding of and agreement to plan and is comfortable going home at this time This document was made in part using voice recognition software. While efforts are made to proofread this document, sound alike and grammatical errors may occur. IMPRESSION: Normal appendix. No focal right lower quadrant inflammatory changes are seen. There is a 1 cm exophytic cystic appearing lesion along the anterior aspect of the left kidney inferiorly. Based upon these images, this cannot be defined as a simple cyst and it may represent a complex/hyperdense cyst. When clinically appropriate, please consider a follow- up renal ultrasound to confirm the cystic nature of this lesion. Incidental note is made of: Small hiatal hernia Fatty liver infiltration Cholecystectomy Focal L5-S1 degenerative change Departure - Departure Disposition: 01 Home, Self Care Clinical Impression: Dehydration, Renal cyst Abdominal pain Qualifiers: Abdominal location: unspecified location Qualified Code(s): R10.9 - Unspecified abdominal pain Vomiting Qualifiers: Vomiting type: unspecified Nausea presence: with nausea Qualified Code(s): R11.2 - Nausea with vomiting, unspecified Condition: Good Instructions: ED Abdominal Pain Female Non-Specific Abdominal Pain, ED Nausea Vomiting Follow-Up: your,doctor in 1 week [Other] Prescriptions: Ondansetron Odt [Zofran] 4 mg TL Q6H PRN #20 tablet PRN Reason: Nausea / Vomiting Comments: The cause of your symptoms is unclear today. Your prescriptions were sent to [facility] in [place]. Please follow up with your doctor for further care. You also need an ultrasound of your left kidney for a possible cyst. This can be ordered with your doctor. CT Results IMPRESSION: Normal appendix. No focal right lower quadrant inflammatory changes are seen. There is a 1 cm exophytic cystic appearing lesion along the anterior aspect of the left kidney inferiorly. Based upon these images, this cannot be defined as a simple cyst and it may represent a complex/hyperdense cyst. When clinically appropriate, please consider a follow- up renal ultrasound to confirm the cystic nature of this lesion. Incidental note is made of: Small hiatal hernia Fatty liver infiltration Cholecystectomy Focal L5-S1 degenerative change Discharge Date/Time: 07/21/21 18:45
[2021-07-21] MEDS ORDERED: SODIUM CHLORIDE 0.9% 2,000 ML IV STA (15:35)
[2021-07-21] MEDS ORDERED: iohexoL-300 100 ML VIAL ONE (16:05)
--- NOTE | 2021-07-21 17:42 | CT Report ---
PROCEDURE: Abdomen/Pelvis W INDICATIONS: RLQ abd pain, vomiting CONTRAST: IV CONTRAST: Isovue 300 ml: 100 PO CONTRAST: *NO PO CONTRAST TECHNIQUE: After the administration of IV contrast, 5 mm thick sections acquired from the diaphragms to the symp hysis. 5 mm thick coronal and sagittal reformats were acquired. For radiation dose reduction, the f ollowing was used: automated exposure control, adjustment of mA and/or kV according to patient size. COMPARISON: 03/20/2014 FINDINGS: Image quality: Excellent. ABDOMEN: Lung bases: Lung bases are clear. Heart size is normal. A small hiatal hernia is incidentally note d. Solid organs: The liver demonstrates normal size and echogenicity. No liver lesions are detected. D iffuse fatty liver infiltration can be seen. The spleen demonstrates normal size and demonstrates no suspicious lesions. Gallbladder has been removed. Biliary system is non dilated. Pancreas enhance s normally. No adrenal nodules. Kidneys demonstrate normal size and enhancement, without hydronephrosis. A cystic-appearing lesion ca n be seen along the anterior inferior aspect of the left kidney that measures 1 cm. The internal dens ity is 30 Hounsfield units and this cannot be defined as a simple cyst based upon these images. Peritoneum and bowel: In this patient with this given history, scrutiny is given to the appendix. A normal appendix is seen, as on series 3 images 60 through 69. No focal right lower quadrant inflammat ory changes are seen. Bowel loops demonstrate normal wall thickness and caliber. No free fluid or air. Nodes and vessels: No retroperitoneal or mesenteric adenopathy by size criteria. Aorta and inferior vena cava are normal in size. Miscellaneous: No ventral hernias. PELVIS: Genitourinary: Bladder wall thickness is normal. The uterus demonstrates an unremarkable appearance for age. No adnexal masses are seen. Miscellaneous: No inguinal hernias or adenopathy. Note is made of pelvic phleboliths on the left. Bones: No suspicious bony lesions. No vertebral body compression fractures. Degenerative changes a re seen, which are worst at the L5-S1 level. IMPRESSION: Normal appendix. No focal right lower quadrant inflammatory changes are seen. There is a 1 cm exophytic cystic appearing lesion along the anterior aspect of the left kidney inferi bhupinder. Based upon these images, this cannot be defined as a simple cyst and it may represent a complex /hyperdense cyst. When clinically appropriate, please consider a follow-up renal ultrasound to confir m the cystic nature of this lesion. Incidental note is made of: Small hiatal hernia Fatty liver infiltration Cholecystectomy Focal L5-S1 degenerative change Reviewed by: Wyatt Spivey MD on 07/21/2021 4:41 PM AKST Approved by: Wyatt Spivey MD on 07/21/2021 4:41 PM AK Station ID: [id number]
[2021-07-21 18:13] VITALS: BP 158/107
[2021-07-21 18:25] LABS: BILIRUBIN,URINE NEGATIVE (NEGATIVE); GLUCOSE, URINE (UA) NEGATIVE (NEGATIVE); KETONES,URINE (UA) NEGATIVE (NEGATIVE); LEUKOCYTE ESTERASE, URINE NEGATIVE (NEGATIVE); NITRITE,URINE NEGATIVE (NEGATIVE); OCCULT BLOOD,URINE NEGATIVE (NEGATIVE); PROTEIN,URINE NEGATIVE (NEGATIVE); UROBILINOGEN,URINE 0.2 (NORMAL) E.U./dL (NORMAL)
[2021-07-21 18:27] LABS: CLARITY,URINE CLEAR (CLEAR)
[2021-07-21] MEDS ORDERED: iohexoL-300 100 ML VIAL IVP ONE (19:53)
== END 2021-07-21 18:45 | disposition home or self-care (01) ==
LOC: ED 13:31
DX: E86.0 Dehydration (principal); N28.1 Cyst of kidney, acquired; E11.9 Type 2 diabetes mellitus without complications; Z79.84 Long term (current) use of oral hypoglycemic drugs; F17.200 Nicotine dependence, unspecified, uncomplicated
CPT/HCPCS: 36415; 74177; 80053; 81003; 83690; 85025; 96360; 96361; 99283; 99284; Q9967; 81001; 87086

== ENCOUNTER 2021-08-05 14:10 | Outpatient (CLI) | payer MEDICAID ==
[2021-08-05 18:01] LABS: BASOPHILS # (AUTO) 0.1 10^3/uL (0.0-0.1); BASOPHILS % (AUTO) 0.7 %; EOSINOPHILS # (AUTO) 0.3 10^3/uL (0.0-0.7); EOSINOPHILS % (AUTO) 3.7 %; HCT - HEMATOCRIT 44.7 % (37.0-47.0); HGB - HEMOGLOBIN 15.1 g/dL (12.0-16.0); LYMPHOCYTES % (AUTO) 42.4 %; MEAN CORPUSCULAR HEMOGLOBIN 30.6 pg (27.0-31.0); MEAN CORPUSCULAR HGB CONC 33.8 g/dL (32.0-36.0); MEAN CORPUSCULAR VOLUME 90.5 fL (81.0-99.0); MONOCYTES # (AUTO) 0.4 10^3/uL (0.0-1.0); MONOCYTES % (AUTO) 5.8 %; NEUTROPHILS # (AUTO) 3.4 10^3/uL (1.5-6.6); NEUTROPHILS % (AUTO) 47.3 %; PLT - PLATELET COUNT 298 10^3/uL (130-450); RED BLOOD COUNT 4.94 10^6/uL (4.20-5.40); RED CELL DISTRIBUTION WIDTH 12.4 % (12.0-15.0); WHITE BLOOD COUNT 7.1 x10^3/uL (4.8-10.8)
[2021-08-05 18:15] LABS: ALBUMIN 4.4 g/dL (3.2-5.5); BILIRUBIN,DIRECT 0.1 mg/dL (0.1-0.5); CALCIUM 9.1 mg/dL (8.5-10.3); CREATININE 0.5 mg/dL (0.4-1.0); POTASSIUM 4.1 mmol/L (3.5-5.0); TOTAL PROTEIN 7.8 g/dL (6.7-8.2)
== END 2021-08-05 14:11 | disposition home or self-care (01) ==
LOC: LAB.N 14:10
PROVIDERS: ATTEND Family Medicine
DX: R11.2 Nausea with vomiting, unspecified (principal)
CPT/HCPCS: 36415; 80048; 80076; 85025

== ENCOUNTER 2021-08-21 16:00 | Outpatient (CLI) | payer MEDICAID ==
--- NOTE | 2021-08-21 19:07 | Ultrasound Report ---
PROCEDURE: Retroperitoneal INDICATIONS: LEFT RENAL CYST TECHNIQUE: Real-time scanning was performed of the retroperitoneal organs, with image documentation. COMPARISON: Reference is made to the CT abdomen dated July 21, 2021 FINDINGS: RIGHT KIDNEY: Measures 11.7 cm in length. The renal cortex thickness measures 1.7 cm. Normal contour and echotexture. Preservation of the cortical thickness and cortical medullary differe ntiation. No hydronephrosis. LEFT KIDNEY: Measures 12.2 cm in length. The renal cortex thickness measures 1.8 cm. Normal contour and echotexture. Preservation of the cortical thickness and cortical medullary differe ntiation. No hydronephrosis. URINARY BLADDER: Prevoid volume: 17 mL. Post void volume: 0 mL. Both ureteral jets are visualized. OTHER: None. IMPRESSION: 1.No significant abnormality. The hypoattenuating lesion in the anterior aspect of the left lower pole kidney, is not visualized. Reviewed by: Bello Reese MD on 08/21/2021 7:06 PM PST Approved by: Bello Reese MD on 08/21/2021 7:06 PM PST Station ID: [id number]
== END 2021-08-21 16:01 | disposition home or self-care (01) ==
LOC: DI 16:00
PROVIDERS: ATTEND Nurse Practitioner Family
DX: N28.1 Cyst of kidney, acquired (principal)

== ENCOUNTER 2021-10-11 17:07 | Emergency (ER) | payer MEDICAID ==
[2021-10-11 17:14] VITALS: BP 139/114
--- OUTSIDE RECORDS SUMMARY | 2021-10-11 17:34 | EXTERNAL MEDICAL SUMMARY RPT | Continuity of Care Document ---
:1985 Author Organization [facility] Address [address] [place] [address] Phone Care Team Providers Name Role Phone Crew Unavailable Unavailable Allergies No information. Encounters No information. Medications date description facility 20210730 pantoprazole 40 MG Enteric Coated Table t [facility] 20210730 Metoclopramide 10 MG Oral Tablet [facility] 20210730 Ondansetron 4 MG Disintegrating Tablet [facility] Problems Procedures date description facility 20210730 General Physician [facility] Results No information. Vital Signs date measurement value source 20210730 weight_standard 143.79 lb 20210730 weight_metric 65.22 kg 20210730 temperature_standard 97 F 20210730 temperature_metric 36.11 C 20210730 respiration_rate 17 /min 20210730 height_standard 72 in 20210730 height_metric 182.88 cm 20210730 heart_rate 82 /min 20210730 BP_systolic 160 mm[Hg] 20210730 BP_diastolic 89 mm[Hg] 20210730 BMI 43.0 kg/m2
--- NOTE | 2021-10-11 17:36 | ED Physician Documentation ---
History of Present Illness - Stated complaint Stated Complaint: R FOOT PAIN - Chief complaint Chief Complaint: Ext Problem - History obtained from History obtained from: Patient - History of Present Illness Timing: How many weeks ago (1) Pain level max: 7 Pain level now: 3 - Additonal information Additional information: Patient is a 36-year-old female who presents to the emergency department with a right foot injury. She states that it was crushed under cans about a week ago. She states she is still having pain when walking. Worse with walking, better with rest. No swelling or deformity. No numbness or tingling. Review of Systems Constitutional: denies: Fever, Chills GI: denies: Vomiting, Diarrhea : denies: Now EGA Skin: denies: Rash PD PAST MEDICAL HISTORY - Past Medical History Cardiovascular: Hypertension, High cholesterol Respiratory: Asthma, Other Endocrine/Autoimmune: Type 2 diabetes GI: Cholelithiasis HOME HEALTH SPECIALIST: None : None HEENT: Chronic vision loss Psych: Depression, Anxiety, Bipolar disorder, Panic attacks, ADD/ADHD, Post traumatic stress disorder, Claustrophobia, Obsessive compulsive disorder Musculoskeletal: Osteoarthritis, Chronic back pain, Other Derm: None - Past Surgical History Past Surgical History: Yes General: Cholecystectomy, EGD - Present Medications Home Medications: Ambulatory Orders Medication Instructions Recorded Confirmed Glipizide [Glipizide ER] 5 mg PO DAILY #30 tab.er.24 08/25/16 04/15/17 Metformin HCl 1,000 mg PO BID 09/20/16 04/15/17 Albuterol Sulfate [Proventil Hfa 1 - 2 puffs INH Q4H PRN #1 inhaler 04/15/17 Inhaler] Inhaler, Assist Devices 1 each MC PRN PRN #1 spacer 04/15/17 [Aerochamber Mini] Ondansetron Odt [Zofran] 4 mg TL Q6H PRN #20 tablet 07/21/21 - Allergies Allergies/Adverse Reactions: Allergies Allergy/AdvReac Type Severity Reaction Status Date / Time Sulfa (Sulfonamide Allergy Severe Anaphylaxis Verified 10/11/21 17:11 Antibiotics) amoxicillin [Amoxicillin] AdvReac Severe Edema Verified 10/11/21 17:11 clarithromycin [From Biaxin] AdvReac Severe Edema Verified 10/11/21 17:11 erythromycin base AdvReac Severe Edema Verified 10/11/21 17:11 [Erythromycin Base] Penicillins AdvReac Severe Edema Verified 10/11/21 17:11 - Social History Does the pt smoke?: Yes Smoking Status: Current every day smoker Does the pt drink ETOH?: No Does the pt have substance abuse?: No - Immunizations Immunizations are current?: Yes - POLST Patient has POLST: No PD ED PE NORMAL - Vitals Vital signs reviewed: Yes - General General: Alert and oriented X 3, No acute distress - Derm Derm: Warm and dry - Extremities Extremities: Other (Tender to palpation over the dorsolateral aspect of the right foot, near the base of the fifth metatarsal. No bruising or swelling. Neurovascular intact. Otherwise normal examination of the foot, ankle and right lower extremity.) - Neuro Neuro: Alert and oriented X 3 Results - Vitals Vitals: Vital Signs - 24 hr 10/11/21 17:12 Temperature 36.9 C Heart Rate 87 Respiratory 18 Rate Blood Pressure 139/114 H O2 Saturation 99 Oxygen O2 Source Room air - Rads (name of study) Right foot x-ray Radiology: Final report received, EMP read contemporaneously, See rad report PD MEDICAL DECISION MAKING - ED course Complexity details: reviewed results, re-evaluated patient, considered differential, d/w patient ED course: No acute findings on x-ray other than a 1.5 mm kimberlee of bone just medial to the distal first metatarsal. This is not anywhere near the patient's site of pain. Patient was placed in a postoperative shoe. We will prescribe pain medication for home. Likely foot contusion/strain. Patient counseled regarding signs and symptoms for which I believe and urgent re-evaluation would be necessary. Patient with good understanding of and agreement to plan and is comfortable going home at this time This document was made in part using voice recognition software. While efforts are made to proofread this document, sound alike and grammatical errors may occur. 1.5 mm kimberlee of bone seen just medial to the distal first metatarsal, which is new compared to 2018. This may be related to a subacute fracture fragment. Departure - Departure Disposition: 01 Home, Self Care Clinical Impression: Right foot sprain Qualifiers: Encounter type: initial encounter Qualified Code(s): S93.601A - Unspecified sprain of right foot, initial encounter Condition: Good Instructions: ED Sprain Foot Follow-Up: Reji Figueredo MD [Primary Care Provider] - Within 1 week Comments: Your x-ray does not show any acute abnormalities. There is a small little chip fracture, but this is not in an area where you are having pain or tenderness. You appear to have a sprain, this should heal on its own. Please follow-up with your doctor for further care. Discharge Date/Time: 10/11/21 18:40
--- NOTE | 2021-10-11 17:55 | XRAY Report ---
PROCEDURE: Foot 3 View RT INDICATIONS: R foot crush injury 1 week ago TECHNIQUE: 3 views of the foot were acquired. COMPARISON: 03/10/2018 FINDINGS: Bones: On one image, there is a 1.5 mm kimberlee of bone seen along the medial aspect of the distal firs t metatarsal. No additional fractures or dislocations. No suspicious bony lesions. Age-appropriate degenerative c hanges are seen. Moderate plantar and Achilles calcaneal spurs are seen. Soft tissues: No tibiotalar joint effusion. Achilles tendon appears normal. IMPRESSION: 1.5 mm kimberlee of bone seen just medial to the distal first metatarsal, which is new compared to 2018. This may be related to a subacute fracture fragment. Reviewed by: Wyatt Spivey MD on 10/11/2021 4:53 PM [facility] Approved by: Wyatt Spivey MD on 10/11/2021 4:53 PM [facility] Station ID: [id number]
[2021-10-11] MEDS ORDERED: HYDROcod/ACETAM 5/325 MG TABLET PO STA (18:21)
== END 2021-10-11 18:40 | disposition home or self-care (01) ==
LOC: ED 17:07
DX: S93.601A Unspecified sprain of right foot, initial encounter (principal); X58.XXXA Exposure to other specified factors, initial encounter; S92.311A Displaced fracture of first metatarsal bone, right foot, initial encounter for closed fracture; F17.200 Nicotine dependence, unspecified, uncomplicated
CPT/HCPCS: 73630; 99282; 99283; A9270

== ENCOUNTER 2021-10-27 12:50 | Outpatient (CLI) | payer MEDICAID ==
[2021-10-27 18:38] LABS: ALBUMIN 4.2 g/dL (3.2-5.5); ALBUMIN/GLOBULIN RATIO 1.2 (1.0-2.2); BASOPHILS % (AUTO) 0.5 %; BILIRUBIN,TOTAL 0.7 mg/dL (0.2-1.0); CALCIUM 9.2 mg/dL (8.5-10.3); CREATININE 0.7 mg/dL (0.4-1.0); EOSINOPHILS # (AUTO) 0.2 10^3/uL (0.0-0.7); EOSINOPHILS % (AUTO) 2.1 %; HCT - HEMATOCRIT 43.5 % (37.0-47.0); HGB - HEMOGLOBIN 14.5 g/dL (12.0-16.0); LYMPHOCYTES # (AUTO) 2.4 10^3/uL (1.5-3.5); LYMPHOCYTES % (AUTO) 30.4 %; MEAN CORPUSCULAR HEMOGLOBIN 30.1 pg (27.0-31.0); MEAN CORPUSCULAR HGB CONC 33.3 g/dL (32.0-36.0); MEAN CORPUSCULAR VOLUME 90.2 fL (81.0-99.0); MEAN PLATELET VOLUME 9.6 fL (7.9-10.8); MONOCYTES # (AUTO) 0.4 10^3/uL (0.0-1.0); MONOCYTES % (AUTO) 5.5 %; NEUTROPHILS # (AUTO) 4.9 10^3/uL (1.5-6.6); NEUTROPHILS % (AUTO) 61.3 %; PLT - PLATELET COUNT 319 10^3/uL (130-450); POTASSIUM 3.9 mmol/L (3.5-5.0); RED BLOOD COUNT 4.82 10^6/uL (4.20-5.40); RED CELL DISTRIBUTION WIDTH 12.3 % (12.0-15.0); TOTAL PROTEIN 7.6 g/dL (6.7-8.2)
[2021-10-27 18:51] LABS: THYROID STIMULATING HORMONE 1.79 uIU/mL (0.34-5.60)
[2021-10-27 20:20] LABS: ESTIMATED AVERAGE GLUCOSE 206 mg/dL (70-100); HEMOGLOBIN A1c% 8.8 % (4.27-6.07)
== END 2021-10-27 12:51 | disposition home or self-care (01) ==
LOC: LAB.N 12:50
PROVIDERS: ATTEND Family Medicine
DX: I10 Essential (primary) hypertension (principal); E66.9 Obesity, unspecified; E11.9 Type 2 diabetes mellitus without complications
CPT/HCPCS: 36415; 80050; 82043; 82570; 83036

== ENCOUNTER 2022-01-25 09:56 | Outpatient (CLI) | payer MEDICAID ==
[2022-01-25 12:31] LABS: BUN - BLOOD UREA NITROGEN 11 mg/dL (6-20); CARBON DIOXIDE - CO2 29 mmol/L (21-32); CHLORIDE 99 mmol/L (101-111); CHOL/HDL RATIO 5.9 (<4.4); CHOLESTEROL 189 mg/dL; CREATININE 0.6 mg/dL (0.4-1.0); GFR - MDRD 111 (>89); GLUCOSE 170 mg/dL (70-100); HDL CHOLESTEROL 32 mg/dL; LDL CHOLESTEROL,CALCULATED 132 mg/dL; LDL/HDL RATIO 4.1 (<4.4); SODIUM 134 mmol/L (135-145); TRIGLYCERIDES 127 mg/dL; VLDL CHOLESTEROL 25 mg/dL
[2022-01-25 12:48] LABS: CREATININE,URINE 213.6 mg/dL; MICROALBUM/CREATININE RATIO,UR 5.6 ug/mg (<30.0); MICROALBUMIN,URINE 1.2 mg/dL (0-300.0)
[2022-01-25 13:57] LABS: ESTIMATED AVERAGE GLUCOSE 189 mg/dL (70-100); HEMOGLOBIN A1c% 8.2 % (4.27-6.07)
== END 2022-01-25 09:57 | disposition home or self-care (01) ==
LOC: LAB.N 09:56
PROVIDERS: ATTEND Family Medicine
DX: I10 Essential (primary) hypertension (principal); E66.01 Morbid (severe) obesity due to excess calories; E78.5 Hyperlipidemia, unspecified; E11.9 Type 2 diabetes mellitus without complications
CPT/HCPCS: 36415; 80048; 80061; 82043; 82570; 83036; 83721

== ENCOUNTER 2022-05-03 13:18 | Outpatient (CLI) | payer MEDICAID ==
[2022-05-03 18:31] LABS: CALCIUM 9.3 mg/dL (8.5-10.3); CREATININE 0.6 mg/dL (0.4-1.0); POTASSIUM 4.3 mmol/L (3.5-5.0)
[2022-05-03 20:48] LABS: ESTIMATED AVERAGE GLUCOSE 214 mg/dL (70-100); HEMOGLOBIN A1c% 9.1 % (4.27-6.07)
== END 2022-05-03 13:19 | disposition home or self-care (01) ==
LOC: LAB.N 13:18
PROVIDERS: ATTEND Family Medicine
DX: E11.8 Type 2 diabetes mellitus with unspecified complications (principal)
CPT/HCPCS: 36415; 80048; 82043; 82570; 83036

== ENCOUNTER 2022-08-09 11:05 | Outpatient (CLI) | payer MEDICAID ==
[2022-08-09 17:39] LABS: CALCIUM 9.1 mg/dL (8.5-10.3); CREATININE 0.6 mg/dL (0.4-1.0); POTASSIUM 4.1 mmol/L (3.5-5.0)
[2022-08-09 17:53] LABS: CREATININE,URINE 164.6 mg/dL; MICROALBUMIN,URINE 0.5 mg/dL (0-300.0)
[2022-08-09 20:48] LABS: ESTIMATED AVERAGE GLUCOSE 197 mg/dL (70-100); HEMOGLOBIN A1c% 8.5 % (4.27-6.07)
== END 2022-08-09 11:06 | disposition home or self-care (01) ==
LOC: LAB.N 11:05
PROVIDERS: ATTEND Family Medicine
DX: I10 Essential (primary) hypertension (principal); E11.65 Type 2 diabetes mellitus with hyperglycemia
CPT/HCPCS: 36415; 80048; 82043; 82570; 83036

== ENCOUNTER 2022-09-03 15:31 | Outpatient (CLI) | payer MEDICAID ==
[2022-09-03 17:46] LABS: BASOPHILS # (AUTO) 0.1 10^3/uL (0.0-0.1); BASOPHILS % (AUTO) 0.6 %; EOSINOPHILS # (AUTO) 0.3 10^3/uL (0.0-0.7); EOSINOPHILS % (AUTO) 3.2 %; HGB - HEMOGLOBIN 14.1 g/dL (12.0-16.0); LYMPHOCYTES % (AUTO) 32.9 %; MEAN CORPUSCULAR HEMOGLOBIN 30.1 pg (27.0-31.0); MEAN CORPUSCULAR HGB CONC 33.6 g/dL (32.0-36.0); MEAN CORPUSCULAR VOLUME 89.7 fL (81.0-99.0); MEAN PLATELET VOLUME 9.5 fL (7.9-10.8); MONOCYTES # (AUTO) 0.5 10^3/uL (0.0-1.0); MONOCYTES % (AUTO) 5.3 %; NEUTROPHILS # (AUTO) 5.2 10^3/uL (1.5-6.6); NEUTROPHILS % (AUTO) 57.7 %; PLT - PLATELET COUNT 317 10^3/uL (130-450); RED BLOOD COUNT 4.68 10^6/uL (4.20-5.40)
[2022-09-03 17:51] LABS: ALBUMIN 4.1 g/dL (3.2-5.5); ALBUMIN/GLOBULIN RATIO 1.4 (1.0-2.2); BILIRUBIN,TOTAL 0.4 mg/dL (0.2-1.0); CALCIUM 9.5 mg/dL (8.5-10.3); CREATININE 0.6 mg/dL (0.4-1.0); POTASSIUM 3.9 mmol/L (3.5-5.0); TOTAL PROTEIN 7.1 g/dL (6.7-8.2)
== END 2022-09-03 15:32 | disposition home or self-care (01) ==
LOC: LAB.N 15:31
PROVIDERS: ATTEND Nurse Practitioner
DX: R10.31 Right lower quadrant pain (principal); R10.2 Pelvic and perineal pain
CPT/HCPCS: 36415; 80053; 81001; 82150; 83690; 85025; 87086

== ENCOUNTER 2022-10-06 07:07 | Outpatient (CLI) | payer MEDICAID ==
--- NOTE | 2022-10-06 10:15 | Ultrasound Report ---
PROCEDURE: Abdomen Complete INDICATIONS: RLQ ABD PAIN, PELVIC PAIN TECHNIQUE: Real-time scanning was performed of the abdominal and retroperitoneal organs, with image documentatio n. COMPARISON: CT 07/21/2021 FINDINGS: Liver: Increased liver echogenicity, commonly mild hepatic steatosis. Gallbladder: Absent. Biliary ducts: Intrahepatic bile ducts are non-dilated. Extrahepatic bile duct caliber measures 8 m m. Normal is 6-7 mm or less in diameter, or 10 mm or less post-cholecystectomy. Pancreas: Visualized portions of the pancreas are sonographically normal. Spleen: Spleen is normal in size and homogeneous in echotexture. Kidneys: Kidneys are normal in size and echotexture. Right kidney measures 13 cm long; left kidney measures 13 cm long. No hydronephrosis or nephrolithiasis. No solid masses. No complex renal cystic lesions which require follow-up. Aorta: Visualized aorta is normal in caliber at less than 3 cm. Iliacs: Proximal common iliac arteries are normal in caliber at less than 2.5 cm. IVC: Intrahepatic inferior vena cava is patent. Miscellaneous: No free abdominal fluid. IMPRESSION: No acute sonographic abnormality. Increased hepatic echogenicity is most commonly due to hepatic stea tosis. Reviewed by: Lev Merrill MD on 10/06/2022 10:13 AM PDT Approved by: Lev Merrill MD on 10/06/2022 10:13 AM PDT Station ID: [id number]
--- NOTE | 2022-10-06 10:16 | Ultrasound Report ---
PROCEDURE: Pelvic w/Transvaginal INDICATIONS: RLQ ABD PAIN, PELVIC PAIN TECHNIQUE: Real-time scanning was performed of the pelvic organs, with image documentation. Additional endovagi nal scanning was necessary due to incomplete visualization of the adnexal and endometrial structures by transabdominal scanning. COMPARISON: 07/21/2021 CT FINDINGS: Uterus: 6 x 2.4 x 3.5 cm. Anteverted. Homogenous. Endometrium measures 9 to 10 mm. Nabothian cysts ar e present. Ovaries: Right ovary is not well seen. Left ovary does not appear enlarged, measuring about 2 cc. Color and spectral Doppler: flows are documented Other: No pathologic free fluid. IMPRESSION: Nonenlarged left ovary. Right ovary is not well seen. Physiologic appearance of the uterus and endome trium. Reviewed by: Lev Merrill MD on 10/06/2022 10:15 AM PDT Approved by: Lev Merrill MD on 10/06/2022 10:15 AM PDT Station ID: [id number]
== END 2022-10-06 07:08 | disposition home or self-care (01) ==
LOC: DI 07:07
PROVIDERS: ATTEND Nurse Practitioner
DX: R10.31 Right lower quadrant pain (principal); R10.2 Pelvic and perineal pain

== ENCOUNTER 2022-11-04 10:22 | Outpatient (CLI) | payer MEDICAID ==
[2022-11-04 12:15] LABS: CALCIUM 8.9 mg/dL (8.5-10.3); CREATININE 0.6 mg/dL (0.4-1.0); POTASSIUM 4.1 mmol/L (3.5-5.0)
[2022-11-04 12:31] LABS: CREATININE,URINE 103.9 mg/dL; MICROALBUM/CREATININE RATIO,UR 2.9 ug/mg (<30.0); MICROALBUMIN,URINE 0.3 mg/dL (0-300.0)
[2022-11-04 12:57] LABS: ESTIMATED AVERAGE GLUCOSE 163 mg/dL (70-100); HEMOGLOBIN A1c% 7.3 % (4.27-6.07)
== END 2022-11-04 10:23 | disposition home or self-care (01) ==
LOC: LAB.N 10:22
PROVIDERS: ATTEND Family Medicine
DX: E11.65 Type 2 diabetes mellitus with hyperglycemia (principal)
CPT/HCPCS: 36415; 80048; 82043; 82570; 83036

== ENCOUNTER 2022-11-19 21:00 | Emergency (ER) | payer MEDICAID ==
[2022-11-19] MEDS ORDERED: LORazepam 2 MG/ML VIAL IM STA (21:23)
--- NOTE | 2022-11-19 21:23 | ED Physician Documentation ---
PD HPI MHE - Stated complaint Stated Complaint: ANIXETY - Chief complaint Chief Complaint: MHE - History obtained from History obtained from: Patient - Additional information Additional information: 37-year-old woman with history of PTSD, diabetes and hypertension had a break-up today and now feels very anxious. She is tearful and hyperventilating. She is not sure what she wants. She is not sure if she wants hospitalization. She says she might have thoughts of harming others. No thoughts of harming herself. 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 : None HEENT: Chronic vision loss Psych: Depression, Anxiety, Bipolar disorder, Panic attacks, ADD/ADHD, Post traumatic stress disorder, Claustrophobia, Obsessive compulsive disorder Musculoskeletal: Osteoarthritis, Chronic back pain, Other Derm: None - Past Surgical History Past Surgical History: Yes General: Cholecystectomy, EGD - Present Medications Home Medications: Ambulatory Orders Medication Instructions Recorded Confirmed Glipizide [Glipizide ER] 5 mg PO DAILY #30 tab.er.24 08/25/16 04/15/17 Metformin HCl 1,000 mg PO BID 09/20/16 04/15/17 Albuterol Sulfate [Proventil Hfa 1 - 2 puffs INH Q4H PRN #1 inhaler 04/15/17 Inhaler] Inhaler, Assist Devices 1 each MC PRN PRN #1 spacer 04/15/17 [Aerochamber Mini] Ondansetron Odt [Zofran] 4 mg TL Q6H PRN #20 tablet 07/21/21 LORazepam [Ativan] 1 mg PO TID PRN #12 tablet 11/19/22 - Allergies Allergies/Adverse Reactions: Allergies Allergy/AdvReac Type Severity Reaction Status Date / Time Sulfa (Sulfonamide Allergy Severe Anaphylaxis Verified 10/11/21 17:11 Antibiotics) amoxicillin [Amoxicillin] AdvReac Severe Edema Verified 10/11/21 17:11 clarithromycin [From Biaxin] AdvReac Severe Edema Verified 10/11/21 17:11 erythromycin base AdvReac Severe Edema Verified 10/11/21 17:11 [Erythromycin Base] Penicillins AdvReac Severe Edema Verified 10/11/21 17:11 - Social History Does the pt smoke?: Yes Smoking Status: Current every day smoker Does the pt drink ETOH?: No Does the pt have substance abuse?: No - Immunizations Immunizations are current?: Yes - POLST Patient has POLST: No PD ED PE NORMAL - Vitals Vital signs reviewed: Yes - General General: Alert and oriented X 3, Other (Pacing, tearful and crying) - HEENT HEENT: PERRL, EOMI - Cardiac Cardiac: RRR, No murmur - Respiratory Respiratory: No respiratory distress, Clear bilaterally - Abdomen Abdomen: Non tender - Derm Derm: Normal color, Warm and dry - Neuro Neuro: Alert and oriented X 3, Normal speech - Psych Psych: Other (Grief stricken affect) Results - Vitals Vitals: Vital Signs - 24 hr 11/19/22 21:03 Temperature 37.2 C Heart Rate 118 H Respiratory 18 Rate Blood Pressure 189/121 H O2 Saturation 97 Oxygen O2 Source Room air PD Medical Decision Making - ED course ED course: 37-year-old woman presents with anxiety after a break-up. She was administered 2 mg of Ativan IM and subsequently felt better. She was offered hospitalization or telepsychiatric consultation which she declined. On reevaluation prior to discharge she states she is not suicidal and not homicidal. She has an appointment for new counselor this week. Departure - Departure Disposition: 01 Home, Self Care Clinical Impression: Grief reaction Condition: Good Record reviewed to determine appropriate education?: Yes Instructions: ED Stress React Prescriptions: LORazepam [Ativan] 1 mg PO TID PRN #12 tablet PRN Reason: Anxiety Comments: I sent your prescription electronically to [facility] in [place]. Follow-up with the counselor as scheduled. Return for new or worsening symptoms. Do not drink or drive with prescription medication. Return if you worsen or develop suicidal or homicidal ideations.
[2022-11-19] MEDS ORDERED: LORazepam 1 MG TABLET PO STA (22:36)
[2022-11-19 22:50] VITALS: BP 168/98
== END 2022-11-19 22:48 | disposition home or self-care (01) ==
LOC: ED 21:00
DX: F43.22 Adjustment disorder with anxiety (principal); F17.200 Nicotine dependence, unspecified, uncomplicated
CPT/HCPCS: 96372; 99283; 99284; J2060; J8499

== ENCOUNTER 2022-11-21 17:05 | Emergency (ER) | payer MEDICAID ==
[2022-11-21] MEDS ORDERED: LORazepam 1 MG TABLET PO STA ×2 (18:01→22:04)
--- NOTE | 2022-11-21 18:08 | ED Physician Documentation ---
PD HPI MHE - Stated complaint Stated Complaint: ANXIETY - Chief complaint Chief Complaint: MHE - History obtained from History obtained from: Patient - Additional information Additional information: She was seen last night for anxiety. Returns again. Having a lot of trouble with her mother. No SI or HI. She does not really know what to do. She lives with her mother. Does not have any options not to live with her mother. 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 HEENT: Chronic vision loss Psych: Depression, Anxiety, Bipolar disorder, Panic attacks, ADD/ADHD, Post traumatic stress disorder, Claustrophobia, Obsessive compulsive disorder Musculoskeletal: Osteoarthritis, Chronic back pain, Other Derm: None - Past Surgical History Past Surgical History: Yes General: Cholecystectomy, EGD - Present Medications Home Medications: Ambulatory Orders Medication Instructions Recorded Confirmed Glipizide [Glipizide ER] 5 mg PO DAILY #30 tab.er.24 08/25/16 04/15/17 Metformin HCl 1,000 mg PO BID 09/20/16 04/15/17 Albuterol Sulfate [Proventil Hfa 1 - 2 puffs INH Q4H PRN #1 inhaler 04/15/17 Inhaler] Inhaler, Assist Devices 1 each MC PRN PRN #1 spacer 04/15/17 [Aerochamber Mini] Ondansetron Odt [Zofran] 4 mg TL Q6H PRN #20 tablet 07/21/21 LORazepam [Ativan] 1 mg PO TID PRN #12 tablet 11/19/22 - Allergies Allergies/Adverse Reactions: Allergies Allergy/AdvReac Type Severity Reaction Status Date / Time Sulfa (Sulfonamide Allergy Severe Anaphylaxis Verified 10/11/21 17:11 Antibiotics) amoxicillin [Amoxicillin] AdvReac Severe Edema Verified 10/11/21 17:11 clarithromycin [From Biaxin] AdvReac Severe Edema Verified 10/11/21 17:11 erythromycin base AdvReac Severe Edema Verified 10/11/21 17:11 [Erythromycin Base] Penicillins AdvReac Severe Edema Verified 10/11/21 17:11 - Social History Does the pt smoke?: Yes Smoking Status: Current every day smoker Does the pt drink ETOH?: No Does the pt have substance abuse?: No - Immunizations Immunizations are current?: Yes - POLST Patient has POLST: No PD ED PE NORMAL - Vitals Vital signs reviewed: Yes - General General: Alert and oriented X 3, No acute distress - Neck Neck: Supple, no meningeal sign, No bony TTP - Abdomen Abdomen: Normal bowel sounds, Soft - Neuro Neuro: Alert and oriented X 3, Normal speech Results - Vitals Vitals: Vital Signs - 24 hr 11/21/22 17:18 Temperature 36.8 C Heart Rate 108 H Respiratory 20 Rate Blood Pressure 155/124 H O2 Saturation 98 Oxygen O2 Source Room air - Labs Labs: Laboratory Tests 11/21/22 11/21/22 11/21/22 19:52 19:52 19:52 WBC 11.7 H RBC 5.26 Hgb 15.7 Hct 47.0 MCV 89.4 MCH 29.8 MCHC 33.4 RDW 12.2 Plt Count 318 MPV 9.0 Neut # (Auto) 8.1 H Lymph # (Auto) 2.7 [place] # (Auto) 0.6 Eos # (Auto) 0.2 Baso # (Auto) 0.1 Absolute Nucleated RBC 0.00 Nucleated RBC % 0.0 Sodium 140 Potassium 3.8 Chloride 104 Carbon Dioxide 27 Anion Gap 9.0 BUN 10 Creatinine 0.6 Estimated GFR (MDRD) 111 Glucose 123 H Calcium 9.2 Magnesium 2.2 Total Bilirubin 0.6 AST 20 ALT 28 Alkaline Phosphatase 84 Total Creatine Kinase 150 Total Protein 8.1 Albumin 4.9 Globulin 3.2 Albumin/Globulin Ratio 1.5 Lipase 27 TSH 1.09 Urine Color Urine Clarity Urine pH Ur Specific [place] Urine Protein Urine Glucose (UA) Urine Ketones Urine Occult Blood Urine Nitrite Urine Bilirubin Urine Urobilinogen Ur Leukocyte Esterase Ur Microscopic Review Urine Culture Comments Urine HCG, Qual Salicylates < 6.0 Urine Opiates Screen Ur Oxycodone Screen Urine Methadone Screen Ur Propoxyphene Screen Acetaminophen < 10 L Ur Barbiturates Screen Ur Tricyclics Screen Ur Phencyclidine Scrn Ur Amphetamine Screen U Methamphetamines Scrn U Benzodiazepines Scrn Urine Cocaine Screen U Cannabinoids Screen Ethyl Alcohol < 5.0 SARS-CoV-2 (PCR) 11/21/22 11/21/22 20:22 20:22 WBC RBC Hgb Hct MCV MCH MCHC RDW Plt Count MPV Neut # (Auto) Lymph # (Auto) [place] # (Auto) Eos # (Auto) Baso # (Auto) Absolute Nucleated RBC Nucleated RBC % Sodium Potassium Chloride Carbon Dioxide Anion Gap BUN Creatinine Estimated GFR (MDRD) Glucose Calcium Magnesium Total Bilirubin AST ALT Alkaline Phosphatase Total Creatine Kinase Total Protein Albumin Globulin Albumin/Globulin Ratio Lipase TSH Urine Color YELLOW Urine Clarity CLEAR Urine pH 5.5 Ur Specific [place] <=1.005 Urine Protein NEGATIVE Urine Glucose (UA) NEGATIVE Urine Ketones NEGATIVE Urine Occult Blood NEGATIVE Urine Nitrite NEGATIVE Urine Bilirubin NEGATIVE Urine Urobilinogen 0.2 (NORMAL) Ur Leukocyte Esterase NEGATIVE Ur Microscopic Review NOT INDICATED Urine Culture Comments NOT INDICATED Urine HCG, Qual NEGATIVE Salicylates Urine Opiates Screen NEGATIVE Ur Oxycodone Screen NEGATIVE Urine Methadone Screen NEGATIVE Ur Propoxyphene Screen NEGATIVE Acetaminophen Ur Barbiturates Screen NEGATIVE Ur Tricyclics Screen NEGATIVE Ur Phencyclidine Scrn NEGATIVE Ur Amphetamine Screen NEGATIVE U Methamphetamines Scrn NEGATIVE U Benzodiazepines Scrn POSITIVE H Urine Cocaine Screen NEGATIVE U Cannabinoids Screen NEGATIVE Ethyl Alcohol SARS-CoV-2 (PCR) NOT DETECTED PD Medical Decision Making - ED course ED course: 37-year-old woman with anxiety. Telepsychiatric consultation was done and he recommends inpatient treatment with the start of Zoloft which she went ahead and ordered. Routine screening labs were ordered and social work consult was placed. Care to overnight emergency physician at shift change pending psychiatric placement. Departure - Departure Clinical Impression: Depressive disorder Condition: Stable
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
[2022-11-21 20:00] LABS: BASOPHILS # (AUTO) 0.1 10^3/uL (0.0-0.1); BASOPHILS % (AUTO) 0.5 %; EOSINOPHILS # (AUTO) 0.2 10^3/uL (0.0-0.7); EOSINOPHILS % (AUTO) 1.5 %; HGB - HEMOGLOBIN 15.7 g/dL (12.0-16.0); LYMPHOCYTES # (AUTO) 2.7 10^3/uL (1.5-3.5); LYMPHOCYTES % (AUTO) 23.2 %; MEAN CORPUSCULAR HEMOGLOBIN 29.8 pg (27.0-31.0); MEAN CORPUSCULAR HGB CONC 33.4 g/dL (32.0-36.0); MEAN CORPUSCULAR VOLUME 89.4 fL (81.0-99.0); MONOCYTES # (AUTO) 0.6 10^3/uL (0.0-1.0); MONOCYTES % (AUTO) 5.2 %; NEUTROPHILS # (AUTO) 8.1 10^3/uL (1.5-6.6); NEUTROPHILS % (AUTO) 69.3 %; PLT - PLATELET COUNT 318 10^3/uL (130-450); RED BLOOD COUNT 5.26 10^6/uL (4.20-5.40); RED CELL DISTRIBUTION WIDTH 12.2 % (12.0-15.0); WHITE BLOOD COUNT 11.7 x10^3/uL (4.8-10.8)
[2022-11-21 20:14] LABS: ACETAMINOPHEN < 10 ug/mL (10-30); ALBUMIN 4.9 g/dL (3.2-5.5); ALBUMIN/GLOBULIN RATIO 1.5 (1.0-2.2); ALKALINE PHOSPHATASE 84 IU/L (42-121); ALT ALANINE AMINOTRANSFERASE 28 IU/L (10-60); AST ASPARTATE AMINOTRANSFERASE 20 IU/L (10-42); BILIRUBIN,TOTAL 0.6 mg/dL (0.2-1.0); BUN - BLOOD UREA NITROGEN 10 mg/dL (6-20); CALCIUM 9.2 mg/dL (8.5-10.3); CARBON DIOXIDE - CO2 27 mmol/L (21-32); CHLORIDE 104 mmol/L (101-111); CK- CREATINE KINASE 150 IU/L (22-269); CREATININE 0.6 mg/dL (0.4-1.0); ETOH - ETHANOL < 5.0 mg/dL; GFR - MDRD 111 (>89); GLUCOSE 123 mg/dL (70-100); LIPASE 27 U/L (22-51); MAGNESIUM 2.2 mg/dL (1.7-2.8); POTASSIUM 3.8 mmol/L (3.5-5.0); SALICYLATE < 6.0 mg/dL; SODIUM 140 mmol/L (135-145); TOTAL PROTEIN 8.1 g/dL (6.7-8.2)
[2022-11-21 20:33] LABS: MUDS CUTOFF CONCENTRATIONS CUTOFF CONC BELOW:
[2022-11-21 20:38] LABS: BILIRUBIN,URINE NEGATIVE (NEGATIVE); GLUCOSE, URINE (UA) NEGATIVE (NEGATIVE); KETONES,URINE (UA) NEGATIVE (NEGATIVE); LEUKOCYTE ESTERASE, URINE NEGATIVE (NEGATIVE); NITRITE,URINE NEGATIVE (NEGATIVE); OCCULT BLOOD,URINE NEGATIVE (NEGATIVE); PH,URINE 5.5 PH (5.0-7.5); PROTEIN,URINE NEGATIVE (NEGATIVE); UROBILINOGEN,URINE 0.2 (NORMAL) E.U./dL (NORMAL)
[2022-11-21 20:39] LABS: CLARITY,URINE CLEAR (CLEAR); HCG UR QUAL NEGATIVE
[2022-11-21 20:48] LABS: AMPHETAMINE SCREEN,URINE NEGATIVE (NEGATIVE); BARBITURATE SCREEN,UR NEGATIVE (NEGATIVE); BENZODIAZEPINES SCREEN, URINE POSITIVE (NEGATIVE); COCAINE SCREEN URINE NEGATIVE (NEGATIVE); METHADONE SCREEN, URINE NEGATIVE (NEGATIVE); METHAMPHETAMINES SCREEN, URINE NEGATIVE (NEGATIVE); OPIATE SCREEN, URINE NEGATIVE (NEGATIVE); OXYCODONE SCREEN, URINE NEGATIVE (NEGATIVE); PROPOXYPHENE SCREEN, URINE NEGATIVE (NEGATIVE); THC CANNABINOID SCREEN, URINE NEGATIVE (NEGATIVE); TRICYCLIC ANTIDEPRESSANT,URINE NEGATIVE (NEGATIVE)
[2022-11-21] MEDS ORDERED: NICOTINE 14 MG PATCH TOP STA (22:04)
[2022-11-21] MEDS ORDERED: LORazepam 1 MG TABLET PO PRN (22:04)
[2022-11-22] MEDS ORDERED: glipiZIDE 5 MG TABLET PO SCH (07:30)
[2022-11-22] MEDS ORDERED: metFORMIN 500 MG TABLET PO SCH ×2 (08:00→17:00)
[2022-11-22] MEDS ORDERED: NICOTINE 14 MG PATCH TOP SCH (09:00)
[2022-11-22] MEDS ORDERED: SERTRALINE 50 MG TABLET PO SCH (09:00)
--- NOTE | 2022-11-22 12:24 | ED Physician Documentation ---
ED Addendum - Addendum Addendum: 11/22/22 12:21 Social work Effie talked with the patient. The patient was hoping to go home. At first they were discussing safety plans and it was not clear truly on safety. However subsequently talking with the patient more, the secondary social studies teacher felt more comfortable with the patient going home. The patient states she does have counselors. She has forward thinking with looking forward to events this coming week. She states she would call for help if she felt that she was going to self-harm. The patient states she has suicidal ideation continually or most every day. At the moment she does not feel an urgency to act. At this point we we will discharge the patient. The secondary social studies teacher has a safety plan outlined. The patient is in agreement. Disposition: The patient discharged home in stable condition. Diagnoses: 1. Chronic depression with suicidal ideation. 2. Exacerbation of suicidal ideation 3. Anxiety. 11/22/22 12:24
[2022-11-22 13:01] VITALS: BP 157/116
== END 2022-11-22 13:20 | disposition home or self-care (01) ==
LOC: ED 17:05
DX: F32.A Depression, unspecified (principal); R45.851 Suicidal ideations; F41.9 Anxiety disorder, unspecified; F17.200 Nicotine dependence, unspecified, uncomplicated; Z20.822 Contact with and (suspected) exposure to COVID-19
CPT/HCPCS: 36415; 80053; 80306; 80307; 80320; 80329; 81003; 81025; 82550; 83690; 83735; 84443; 85025; 87635; 99283; 99284; A9270; G0425; J8499; Q3014; 81001; 87086

== ENCOUNTER 2023-02-02 17:19 | Emergency (ER) | payer MEDICAID ==
--- NOTE | 2023-02-02 17:38 | ED Physician Documentation ---
PD HPI SKIN - Stated complaint Stated Complaint: BEE STING - Chief complaint Chief Complaint: Allergic Rx - History obtained from History obtained from: Patient - History of Present Illness Timing - onset: How many hours ago (2), Today Timing - duration: Hours (1/2) Timing - details: Abrupt onset (The patient states she was stung twice, once in the lower lip and once in the right upper arm. She has localized swelling in both of those areas. No generalized symptoms. She is concerned however the swelling in the lip is including the jaw and anterior neck. No swelling in the throat or tongue.) Location: Face, RUE (upper arm laterally) Quality / character: Itchy, Burning (just in areas of stings, no general symptoms.), Swelling Associated symptoms: No: Myalgias, Dyspnea, N/V/D Contributing factors: Insect bite /sting (bee stings x2) Similar symptoms before: Diagnosis (has had large local reaction to bee sting several years ago.) Recently seen: Not recently seen Review of Systems Respiratory: denies: Dyspnea GI: denies: Nausea, Vomiting Neurologic: denies: Near syncope, Syncope, Altered mental status PD PAST MEDICAL HISTORY - Past Medical History Cardiovascular: Hypertension, High cholesterol Respiratory: Asthma, Other Endocrine/Autoimmune: Type 2 diabetes GI: Cholelithiasis 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 HEENT: Chronic vision loss Psych: Depression, Anxiety, Bipolar disorder, Panic attacks, ADD/ADHD, Post traumatic stress disorder, Claustrophobia, Obsessive compulsive disorder Musculoskeletal: Osteoarthritis, Chronic back pain, Other Derm: None - Past Surgical History Past Surgical History: Yes General: Cholecystectomy, EGD - Present Medications Home Medications: Ambulatory Orders Medication Instructions Recorded Confirmed Glipizide [Glipizide ER] 5 mg PO DAILY #30 tab.er.24 08/25/16 04/15/17 Metformin HCl 1,000 mg PO BID 09/20/16 04/15/17 Albuterol Sulfate [Proventil Hfa 1 - 2 puffs INH Q4H PRN #1 inhaler 04/15/17 Inhaler] Inhaler, Assist Devices 1 each MC PRN PRN #1 spacer 04/15/17 [Aerochamber Mini] Ondansetron Odt [Zofran] 4 mg TL Q6H PRN #20 tablet 07/21/21 LORazepam [Ativan] 1 mg PO TID PRN #12 tablet 05/26/23 - Allergies Allergies/Adverse Reactions: Allergies Allergy/AdvReac Type Severity Reaction Status Date / Time Sulfa (Sulfonamide Allergy Severe Anaphylaxis Verified 10/11/21 17:11 Antibiotics) amoxicillin [Amoxicillin] AdvReac Severe Edema Verified 10/11/21 17:11 clarithromycin [From Biaxin] AdvReac Severe Edema Verified 10/11/21 17:11 erythromycin base AdvReac Severe Edema Verified 10/11/21 17:11 [Erythromycin Base] Penicillins AdvReac Severe Edema Verified 10/11/21 17:11 - Social History Does the pt smoke?: Yes Smoking Status: Current every day smoker Does the pt drink ETOH?: No Does the pt have substance abuse?: No - Immunizations Immunizations are current?: Yes - POLST Patient has POLST: No PD ED PE NORMAL - Vitals Vital signs reviewed: Yes - General General: Alert and oriented X 3, Well developed/nourished, Other (Normal voice and respiratory pattern. There is obvious swelling of the lower lip extending to the jaw and slightly on the lower right anterior neck. No swelling of the upper lip. No tongue nor pharyngeal swelling.) - HEENT HEENT: Pharynx benign - Neck Neck: Supple, no meningeal sign, No adenopathy - Cardiac Cardiac: RRR, No murmur - Respiratory Respiratory: Clear bilaterally - Derm Derm: Normal color, Warm and dry, Other (no general hives. ) - Extremities Extremities: Other (right upper arm laterally with local swelling and redness. ) - Neuro Neuro: Alert and oriented X 3, No motor deficit, No sensory deficit, Normal speech Results - Vitals Vitals: Vital Signs - 24 hr 02/02/23 17:21 Temperature 36.7 C Heart Rate 92 Respiratory 20 Rate Blood Pressure 151/137 H O2 Saturation 98 Oxygen O2 Source Room air PD Medical Decision Making - ED course Complexity details: re-evaluated patient, considered differential (Strong local reaction to bee stings in the arm and the lower lip. Still has local symptoms only no generalized immune response. Still of concern is the local effect. Will give Benadryl and some steroids and cool ice and watch to ensure the lip swelling does not transfer posteriorly.), d/w patient Departure - Departure Clinical Impression: Local reaction to bee sting Condition: Stable Record reviewed to determine appropriate education?: Yes Instructions: ED Bite Insect Follow-Up: Reji Figueredo MD [Primary Care Provider] - Comments: These appear to be local reactions to the bee stings even if they are notable swelling. You can use cool towels or ice to the areas. Antihistamine such as Benadryl or cetirizine/Zyrtec may be helpful. Commonly there will be some element of swelling for even 2 or 3 days. He should be tapering down from here. You do not have symptoms to suggest a generalized allergic/anaphylactic reaction. As such I do not see need for you to have to carry an EpiPen etc. Forms: PCP List
[2023-02-02] MEDS: diphenhydrAMINE INJ 50 MG/ML VIAL IM STA (17:56)
[2023-02-02] MEDS: DEXAMETHASONE 10 MG/ML VIAL IM STA (17:56)
[2023-02-02] MEDS: CETIRIZINE 10 MG TABLET PO STA (17:56)
--- OUTSIDE RECORDS SUMMARY | 2023-02-02 17:57 | EXTERNAL MEDICAL SUMMARY RPT | Continuity of Care Document ---
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 Role Phone Alfredo Glasgow Unavailable Unavailable Allergies and Intolerances date description facility reaction severity (no date) Penicillins [facility] (no reaction) (no s everity) (no date) clarithromycin [facility] (no reaction) (n o severity) (no date) erythromycin base [facility] (no reaction) (no severity) Medications date description facility 2022-11-28 00:00 Lorazepam [facility] 2022-11-28 00:00 Gabapentin [facility] 2022-11-28 00:00 Ketorolac [facility] 2022-11-28 00:00 Hydrocodone-Acetaminophen [facility] Problems date description facility 2022-11-28 00:00 Anxiety [facility] 2022-11-28 00:00 Acute lumbar radiculopathy [facility] 2022-11-28 00:00 Sprain of knee [facility] 2022-12-06 08:[address], [address] [facility] 2023-01-09 00:00 Patient left before evaluation by physician [facility] Procedures date description facility 2022-11-27 00:00 XR knee RT 3V [facility] Results/Labs test date facility value unit notes Social History date description facility 2022-11-28 00:00 Smokes tobacco daily (finding) [facility] 2023-01-09 00:00 Smokes tobacco daily (finding) [facility] Vital Signs date measurement value units 2022-11-27 00:00 temperature_metric 36.44 C 2022-11-27 00:00 temperature_standard 97.6 F 2022-11-28 00:00 BMI 43.4 kg/m2 2022-11-28 00:00 BP_diastolic 85 mmHg 2022-11-28 00:00 BP_systolic 156 mmHg 2022-11-28 00:00 heart_rate 92 /min 2022-11-28 00:00 height_metric 182.88 cm 2022-11-28 00:00 height_standard 72 in 2022-11-28 00:00 o2_saturation 96 % 2022-11-28 00:00 respiration_rate 16 /min 2022-11-28 00:00 weight_metric 145.14 kg 2022-11-28 00:00 weight_standard 319.98 lb 2023-01-09 00:00 BMI 42.0 kg/m2 2023-01-09 00:00 BP_diastolic 102 mmHg 2023-01-09 00:00 BP_systolic 181 mmHg 2023-01-09 00:00 heart_rate 89 /min 2023-01-09 00:00 height_metric 182.88 cm 2023-01-09 00:00 height_standard 72 in 2023-01-09 00:00 o2_saturation 98 % 2023-01-09 00:00 respiration_rate 16 /min 2023-01-09 00:00 temperature_metric 36.78 C 2023-01-09 00:00 temperature_standard 98.2 F 2023-01-09 00:00 weight_metric 140.61 kg 2023-01-09 00:00 weight_standard 309.99 lb
[2023-02-02] MEDS: ALBUTEROL NEB 2.5 MG/3 ML INH STA (18:25)
[2023-02-02] MEDS: predniSONE 20 MG TABLET PO STA (19:34)
--- NOTE | 2023-02-02 20:42 | ED Physician Documentation ---
ED Addendum - Addendum Addendum: 02/02/23 20:41 Patient was observed in the emergency department for several hours, swelling continues to decrease. No stridor. No wheezing. No changes in phonation. No evidence of anaphylaxis. Will have her follow-up with her doctor for further care. Patient counseled regarding signs and symptoms for which I believe and urgent re-evaluation would be necessary. Patient with good understanding of and agreement to plan and is comfortable going home at this time This document was made in part using voice recognition software. While efforts are made to proofread this document, sound alike and grammatical errors may occur. Departure - Departure Clinical Impression: Local reaction to bee sting Qualifiers: Encounter type: initial encounter Injury intent: undetermined intent Qualified Code(s): T63.444A - Toxic effect of venom of bees, undetermined, initial encounter Condition: Good Instructions: ED Bite Insect Follow-Up: Reji Figueredo MD [Primary Care Provider] - Prescriptions: predniSONE [Deltasone] 40 mg PO DAILY #10 tablet Comments: These appear to be local reactions to the bee stings even if they are notable swelling. You can use cool towels or ice to the areas. Antihistamine such as Benadryl or cetirizine/Zyrtec may be helpful. Commonly there will be some element of swelling for even 2 or 3 days. He should be tapering down from here. You do not have symptoms to suggest a generalized allergic/anaphylactic reaction. As such I do not see need for you to have to carry an EpiPen etc. Your prescription was sent to [facility] in [place]. Forms: PCP List
[2023-02-02 20:46] VITALS: BP 126/76; O2SAT 97
== END 2023-02-02 20:46 | disposition home or self-care (01) ==
LOC: ED 17:19
DX: T63.441A Toxic effect of venom of bees, accidental (unintentional), initial encounter (principal); I10 Essential (primary) hypertension; E78.00 Pure hypercholesterolemia, unspecified; E11.9 Type 2 diabetes mellitus without complications; F17.200 Nicotine dependence, unspecified, uncomplicated; Z79.899 Other long term (current) drug therapy; Z79.84 Long term (current) use of oral hypoglycemic drugs
CPT/HCPCS: 94640; 96372; 99283

== ENCOUNTER 2023-02-18 09:47 | Outpatient (CLI) | payer MEDICAID ==
[2023-02-18 13:02] LABS: CALCIUM 9.4 mg/dL (8.5-10.3); CREATININE 0.7 mg/dL (0.6-1.3); POTASSIUM 4.3 mmol/L (3.5-4.5)
[2023-02-18 13:21] LABS: ESTIMATED AVERAGE GLUCOSE 160 mg/dL (70-100); HEMOGLOBIN A1c% 7.2 % (4.27-6.07)
== END 2023-02-18 09:48 | disposition home or self-care (01) ==
LOC: LAB.N 09:47
PROVIDERS: ATTEND Family Medicine
DX: I10 Essential (primary) hypertension (principal); E11.8 Type 2 diabetes mellitus with unspecified complications; E66.9 Obesity, unspecified
CPT/HCPCS: 36415; 80048; 83036

== ENCOUNTER 2023-03-24 14:00 | Outpatient (CLI) | payer MEDICAID ==
--- NOTE | 2023-03-24 15:46 | XRAY Report ---
PROCEDURE: Knee 3 View RT INDICATIONS: SPRAIN OF UNSPECIFIED SITE OF RIGHT KNEE TECHNIQUE: 3 views of the right knee(s) were acquired. COMPARISON: None. FINDINGS: Bones: No fractures or dislocations. No suspicious bony lesions. Tricompartmental joint space coco rowing with associated osteophytosis. Soft tissues: No knee joint effusion. No suspicious soft tissue calcifications or masses. IMPRESSION: No acute bony abnormality or significant effusion. Mild to moderate tricompartmental osteoarthritis. Kellgren-Lexa scale of osteoarthritis: 2. Reviewed by: Wiliam Khan on 03/24/2023 3:45 PM PDT Approved by: Wiliam Khan on 03/24/2023 3:45 PM PDT Station ID: [id number]
== END 2023-03-24 14:01 | disposition home or self-care (01) ==
LOC: DI 14:00
PROVIDERS: ATTEND Physician Assistant Medical
DX: S83.91XA Sprain of unspecified site of right knee, initial encounter (principal); M17.11 Unilateral primary osteoarthritis, right knee

== ENCOUNTER 2023-04-07 17:48 | Outpatient (CLI) | payer MEDICAID ==
--- NOTE | 2023-04-08 16:47 | MRI Report ---
PROCEDURE: KNEE WO - RT INDICATIONS: SPRAIN OF RIGHT KNEE TECHNIQUE: Noncontrast sagittal PD fast spin echo and T2 fast spin echo with fat saturation, sagittal 3-D gradie nt sequence with fat saturation; coronal T1 spin echo and PD fast spin echo with fat saturation, and axial PD fast spin echo with fat saturation through the knee. COMPARISON: 03/24/2023 plain films FINDINGS: Image quality: Excellent. Menisci: There is mild ill-defined T2 signal elevation at the posterior meniscal capsular junction of the posterior horn medial meniscus. Linear oblique high T2 signal intensity traverses the inner, mid dle, peripheral thirds of the posterior horn lateral meniscus, demonstrating inferior articular surfa ce extension. Linear horizontal high T2 signal intensity traverses the inner, middle, peripheral thir ds of the anterior horn lateral meniscus, demonstrating superior articular surface extension, indicat ing horizontal tearing. Cruciate ligaments: The anterior and posterior cruciate ligaments appear intact. Medial structures: The medial collateral ligament appears intact. Visualized portions of the pes ans erinus tendons appear normal. No abnormal bursal fluid. Lateral structures: The lateral collateral ligament, long and short heads of the biceps femoris tend on appear intact. The popliteus tendon appears normal. Iliotibial band appears normal. Anterior structures: The quadriceps and patellar tendons appear intact. Lateral patellar subluxation is present. Lateral ventral trochlear prominence is present. Bones and cartilage: No bone marrow contusions or fractures. Subchondral cyst formation within the l ateral femoral trochlea. There is mild tricompartmental periarticular osteophyte formation. Mild ashley cular cartilage loss diffusely overlies the weightbearing aspects of the medial femoral condyle, medi al tibial plateau, lateral femoral condyle, and lateral tibial plateau. Moderate degree cartilage los s overlies the lateral patellar facet and lateral femoral trochlea. Joint space: There is physiologic knee joint fluid. Trace Kong's cyst. Normal appearing synovial p licae are incidentally noted. IMPRESSION: 1. Tricompartmental osteoarthritis with associated reticular cartilage loss. 2. Meniscocapsular junction injury involving the medial meniscus. 3. Medial and lateral meniscal tearing. 4. Findings consistent with lateral patellofemoral friction syndrome in the appropriate clinical sett ing. Reviewed by: Traci Man MD on 04/08/2023 4:46 PM PDT Approved by: Traci Man MD on 04/08/2023 4:46 PM PDT Station ID: [id number]
== END 2023-04-07 17:49 | disposition home or self-care (01) ==
LOC: DI 17:48
PROVIDERS: ATTEND Physician Assistant Medical
DX: M17.11 Unilateral primary osteoarthritis, right knee (principal); S83.241A Other tear of medial meniscus, current injury, right knee, initial encounter; S83.281A Other tear of lateral meniscus, current injury, right knee, initial encounter

== ENCOUNTER 2023-04-21 08:00 | Outpatient (CLI) | payer MEDICAID ==
--- NOTE | 2023-04-21 16:28 | XRAY Report ---
PROCEDURE: Knee 2 View RT INDICATIONS: RIGHT KNEE PAIN TECHNIQUE: 2 views of the right knee(s) were acquired. COMPARISON: None. FINDINGS: Bones: No fractures or dislocations. No suspicious bony lesions. Mild nonuniform joint space narr owing of the and tibiofemoral compartments, with osteolytic lipping. Soft tissues: No knee joint effusion. No suspicious soft tissue calcifications or masses. IMPRESSION: Mild bicompartmental osteoarthritis. Reviewed by: Wiliam Khan on 04/21/2023 4:26 PM PDT Approved by: Wiliam Khan on 04/21/2023 4:26 PM PDT Station ID: [id number]
== END 2023-04-21 23:59 | disposition home or self-care (01) ==
LOC: DI.WOS 08:00
PROVIDERS: ATTEND Physician Assistant Surgical
DX: S83.91XA Sprain of unspecified site of right knee, initial encounter (principal); M17.11 Unilateral primary osteoarthritis, right knee

== ENCOUNTER 2023-12-06 12:11 | Outpatient (CLI) | payer MEDICAID ==
[2023-12-06 18:02] LABS: BASOPHILS % (AUTO) 0.6 %; EOSINOPHILS # (AUTO) 0.2 10^3/uL (0.0-0.7); HCT - HEMATOCRIT 44.4 % (37.0-47.0); HGB - HEMOGLOBIN 14.7 g/dL (12.0-16.0); LYMPHOCYTES # (AUTO) 2.5 10^3/uL (1.5-3.5); LYMPHOCYTES % (AUTO) 36.6 %; MEAN CORPUSCULAR HEMOGLOBIN 29.7 pg (27.0-31.0); MEAN CORPUSCULAR HGB CONC 33.1 g/dL (32.0-36.0); MEAN CORPUSCULAR VOLUME 89.7 fL (81.0-99.0); MEAN PLATELET VOLUME 9.8 fL (7.9-10.8); MONOCYTES # (AUTO) 0.4 10^3/uL (0.0-1.0); MONOCYTES % (AUTO) 6.5 %; NEUTROPHILS # (AUTO) 3.6 10^3/uL (1.5-6.6); PLT - PLATELET COUNT 279 10^3/uL (130-450); RED BLOOD COUNT 4.95 10^6/uL (4.20-5.40); RED CELL DISTRIBUTION WIDTH 12.6 % (12.0-15.0); WHITE BLOOD COUNT 6.7 x10^3/uL (4.8-10.8)
[2023-12-06 18:19] LABS: ALBUMIN 4.2 g/dL (3.2-5.5); ALBUMIN/GLOBULIN RATIO 2.8 (1.0-2.2); ALKALINE PHOSPHATASE 110 IU/L (42-121); ALT ALANINE AMINOTRANSFERASE 23 IU/L (10-60); AST ASPARTATE AMINOTRANSFERASE 18 IU/L (10-42); BILIRUBIN,TOTAL 0.5 mg/dL (0.2-1.0); BUN - BLOOD UREA NITROGEN 9 mg/dL (6-20); CALCIUM 9.1 mg/dL (8.5-10.3); CARBON DIOXIDE - CO2 29 mmol/L (21-32); CHLORIDE 104 mmol/L (101-111); CHOL/HDL RATIO 4.5 (<4.4); CHOLESTEROL 179 mg/dL; CREATININE 0.6 mg/dL (0.6-1.3); GFR - MDRD 111 (>89); GLUCOSE 209 mg/dL (74-104); HDL CHOLESTEROL 40 mg/dL; LDL CHOLESTEROL,CALCULATED 117 mg/dL; LDL/HDL RATIO 2.9 (<4.4); POTASSIUM 4.5 mmol/L (3.5-4.5); SODIUM 138 mmol/L (135-145); TOTAL PROTEIN 5.7 g/dL (6.4-8.9); TRIGLYCERIDES 112 mg/dL (48-352); VLDL CHOLESTEROL 22 mg/dL
[2023-12-06 18:32] LABS: THYROID STIMULATING HORMONE 1.39 uIU/mL (0.34-5.60)
[2023-12-06 20:18] LABS: ESTIMATED AVERAGE GLUCOSE 217 mg/dL (70-100); HEMOGLOBIN A1c% 9.2 % (4.27-6.07)
== END 2023-12-06 12:12 | disposition home or self-care (01) ==
LOC: LAB.N 12:11
PROVIDERS: ATTEND Family Medicine
DX: J45.909 Unspecified asthma, uncomplicated (principal); F32.9 Major depressive disorder, single episode, unspecified; K21.9 Gastro-esophageal reflux disease without esophagitis; F17.200 Nicotine dependence, unspecified, uncomplicated; G47.33 Obstructive sleep apnea (adult) (pediatric); E66.01 Morbid (severe) obesity due to excess calories; E78.5 Hyperlipidemia, unspecified; I10 Essential (primary) hypertension; E11.8 Type 2 diabetes mellitus with unspecified complications
CPT/HCPCS: 36415; 80050; 80061; 82043; 82570; 83036; 83721

== ENCOUNTER 2024-01-16 12:56 | Outpatient (CLI) | payer MEDICAID ==
--- NOTE | 2024-01-17 10:14 | MRI Report ---
PROCEDURE: Knee LT WO INDICATIONS: INTERNAL DERANGEMENT L KNEE TECHNIQUE: Noncontrast sagittal PD fast spin echo and T2 fast spin echo with fat saturation, sagittal 3-D gradie nt sequence with fat saturation; coronal T1 spin echo and PD fast spin echo with fat saturation, and axial PD fast spin echo with fat saturation through the knee. COMPARISON: 04/21/2023. FINDINGS: Image quality: Excellent. Menisci: The medial meniscus is intact. Complex tear throughout lateral meniscus is seen extending t o both superior and inferior articulating surfaces. The meniscal root ligaments appear intact. Cruciate ligaments: The anterior cruciate ligament is thickened with intrasubstance T2 hyperintense signal. The posterior cruciate ligament is intact. Medial structures: The medial collateral ligament appears mildly thickened at its femoral insertion. Visualized portions of the pes anserinus tendons appear normal. No abnormal bursal fluid. Lateral structures: The lateral collateral ligament is mildly thickened. The long and short heads of the biceps femoris tendon appear intact. The popliteus tendon appears normal. Iliotibial band appea rs normal. Anterior structures: The quadriceps tendon is intact. Distal patella tendinosis at its anterior tibi al insertion is seen. Slight lateral subluxation of patella is noted. No femoral trochlear dysplasia or ventral trochlear prominence. No edema in the infrapatellar fat pad. Bones and cartilage: No bone marrow contusions or fractures. Mild tricompartmental osteoarthritis an d chondromalacia is seen more notably in lateral femoral tibial compartment. Joint space: There is small joint effusion. No Kong's cyst. Normal appearing synovial plicae are incidentally noted. IMPRESSION: 1. Complex tear involving entire lateral meniscus extending to both superior and inferior articulatin g surfaces. The medial meniscus is intact. 2. Degenerative changes and low-grade intrasubstance partial thickness tear involving the ACL. No ACL rupture. The posterior cruciate ligament is intact. 3. Low to moderate grade proximal MCL sprain and low-grade proximal LCL sprain. 4. Distal patella tendinosis at its anterior tibial insertion. Slight lateral subluxation of patella. 5. No acute fracture or dislocation. Mild tricompartment osteoarthritis and chondromalacia most notab ly in lateral femoral tibial compartment. 6. Small joint effusion, no loose bodies. Reviewed by: Mukund Beltran MD on 01/17/2024 10:12 AM PDT Approved by: Mukund Beltran MD on 01/17/2024 10:12 AM PDT Station ID: [id number]
== END 2024-01-16 12:57 | disposition home or self-care (01) ==
LOC: DI 12:56
PROVIDERS: ATTEND Physician Assistant Surgical
DX: S83.272A Complex tear of lateral meniscus, current injury, left knee, initial encounter (principal); M17.12 Unilateral primary osteoarthritis, left knee; S83.512A Sprain of anterior cruciate ligament of left knee, initial encounter; S83.412A Sprain of medial collateral ligament of left knee, initial encounter; S83.422A Sprain of lateral collateral ligament of left knee, initial encounter; S83.012A Lateral subluxation of left patella, initial encounter; M25.462 Effusion, left knee; M94.262 Chondromalacia, left knee

== ENCOUNTER 2024-02-09 19:34 | Emergency (ER) | payer MEDICAID ==
[2024-02-09 19:41] VITALS: BP 160/90; O2SAT 100
--- NOTE | 2024-02-09 20:01 | ED Physician Documentation ---
PD HPI LOWER EXT INJURY - Stated complaint Stated Complaint: LT FOOT INJ - Chief complaint Chief Complaint: Trauma Ext - History obtained from History obtained from: Patient, Family (mother) - History of Present Illness PD HPI LOW EXT INJURY LOCATION: Left, Toe (middle) Type of injury: Blunt / blow Where injury occurred: Home Timing - onset: Yesterday Timing - duration: Days (2) Timing - details: Abrupt onset, Still present Improved by: Rest Worsened by: Moving, Palpating Associated symptoms: No: Weakness, Numbness, Tingling Contributing factors: No: Anticoagulated Similar symptoms before: Has not had sx before Recently seen: Not recently seen - Additional information Additional information: Tasia Salcedo is a 39-year-old female who stubbed her left middle toe at home yesterday and she has had some pain and numbness associated with this and she is unable to curl her toes down. She is worried about the potential for a fracture. Review of Systems Constitutional: denies: Fever Respiratory: denies: Cough GI: denies: Vomiting, Diarrhea PD PAST MEDICAL HISTORY - Past Medical History Past Medical History: Yes Cardiovascular: Hypertension, High cholesterol Respiratory: Asthma, Other Endocrine/Autoimmune: Type 2 diabetes GI: Cholelithiasis ANNUAL GIVING DIRECTOR: None : None HEENT: Chronic vision loss Psych: Depression, Anxiety, Bipolar disorder, Panic attacks, ADD/ADHD, Post traumatic stress disorder, Claustrophobia, Obsessive compulsive disorder Musculoskeletal: Osteoarthritis, Chronic back pain, Other Derm: None - Past Surgical History Past Surgical History: Yes General: Cholecystectomy, EGD - Present Medications Home Medications: Ambulatory Orders Medication Instructions Recorded Confirmed Glipizide [Glipizide ER] 5 mg PO DAILY #30 tab.er.24 08/25/16 02/02/23 Albuterol Sulfate [Proventil Hfa 1 - 2 puffs INH Q4H PRN #1 inhaler 04/15/17 02/02/23 Inhaler] LORazepam [Ativan] 1 mg PO TID PRN #12 tablet 11/19/22 02/02/23 metFORMIN [Glucophage] 500 mg PO BIDWM 02/02/23 02/02/23 predniSONE [Deltasone] 40 mg PO DAILY #10 tablet 02/02/23 - Allergies Allergies/Adverse Reactions: Allergies Allergy/AdvReac Type Severity Reaction Status Date / Time Sulfa (Sulfonamide Allergy Severe Anaphylaxis Verified 02/09/24 19:42 Antibiotics) bee venom protein (honey bee) Allergy Edema Verified 02/09/24 19:42 amoxicillin [Amoxicillin] AdvReac Severe Edema Verified 02/09/24 19:42 clarithromycin [From Biaxin] AdvReac Severe Edema Verified 02/09/24 19:42 erythromycin base AdvReac Severe Edema Verified 02/09/24 19:42 [Erythromycin Base] Penicillins AdvReac Severe Edema Verified 02/09/24 19:42 - Social History Does the pt smoke?: Yes Smoking Status: Current every day smoker Does the pt drink ETOH?: No Does the pt have substance abuse?: No - Immunizations Immunizations are current?: Yes - POLST Patient has POLST: No PD ED PE NORMAL - Vitals Vital signs reviewed: Yes (Hypertensive) - General General: Alert and oriented X 3, No acute distress, Well developed/nourished - HEENT HEENT: Atraumatic, PERRL, EOMI - Respiratory Respiratory: No respiratory distress - Derm Derm: Normal color, Warm and dry, No rash - Extremities Extremities: No edema, Other (The patient has a short third toe and a long fourth toe. Her third toe is minimal tenderness she is unable to curl her toes. 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 2-12 intact, No motor deficit, No sensory deficit, Normal speech Eye Opening: Spontaneous Motor: Obeys Commands Verbal: Oriented GCS Score: 15 - Psych Psych: Normal mood, Normal affect Results - Vitals Vitals: Vital Signs - 24 hr 02/09/24 19:39 Temperature 36.8 C Heart Rate 90 Respiratory 16 Rate Blood Pressure 160/90 H O2 Saturation 100 Oxygen O2 Source Room air - Rads (name of study) toes Relevant Findings:: Prelim report reviewed (Impression: No acute bony abnormality.), EMP independent interpretation of test, See rad report PD Medical Decision Making - ED course Complexity details: considered differential, d/w patient ED course: 39-year-old female stubbed her toe no evidence of fracture she is able to bear weight on it Departure - Departure Disposition: 01 Home, Self Care Clinical Impression: Contusion of toe of left foot Qualifiers: Encounter type: initial encounter Toe: lesser toe Damage to nail status: without damage Qualified Code(s): S90.122A - Contusion of left lesser toe(s) without damage to nail, initial encounter Condition: Stable Instructions: ED Contusion Lower Ext Follow-Up: Reji Figueredo MD [Primary Care Provider] - Comments: Tasia, today it does not look like there is any fracture to your toe. We are expecting the feeling and the movement in your toes to come back to normal within a 2-week period of time. Forms: PCP List Discharge Date/Time: 02/09/24 20:31
--- NOTE | 2024-02-09 20:32 | XRAY Report ---
PROCEDURE: Foot 3+V LT INDICATIONS: Trauma. Numbness of the second and third digits. TECHNIQUE: 3 views of the foot were acquired. COMPARISON: None. FINDINGS: Bones: No fractures or dislocations. No suspicious bony lesions. Soft tissues: No tibiotalar joint effusion. Achilles tendon appears normal. IMPRESSION: No acute bony abnormality. Reviewed by: Wiliam Khan MD on 02/09/2024 8:30 PM PDT Approved by: Wiliam Khan MD on 02/09/2024 8:30 PM PDT Station ID: [id number]
== END 2024-02-09 20:31 | disposition home or self-care (01) ==
LOC: ED 19:34
DX: S90.122A Contusion of left lesser toe(s) without damage to nail, initial encounter (principal); W22.8XXA Striking against or struck by other objects, initial encounter; F17.200 Nicotine dependence, unspecified, uncomplicated
CPT/HCPCS: 99283

== ENCOUNTER 2024-03-05 12:13 | Outpatient (CLI) | payer MEDICAID ==
[2024-03-05 18:59] LABS: BASOPHILS # (AUTO) 0.1 10^3/uL (0.0-0.1); BASOPHILS % (AUTO) 0.6 %; EOSINOPHILS # (AUTO) 0.3 10^3/uL (0.0-0.7); EOSINOPHILS % (AUTO) 3.1 %; HGB - HEMOGLOBIN 14.7 g/dL (12.0-16.0); LYMPHOCYTES # (AUTO) 2.4 10^3/uL (1.5-3.5); LYMPHOCYTES % (AUTO) 29.5 %; MEAN CORPUSCULAR HEMOGLOBIN 29.6 pg (27.0-31.0); MEAN CORPUSCULAR VOLUME 92.6 fL (81.0-99.0); MEAN PLATELET VOLUME 9.7 fL (7.9-10.8); MONOCYTES # (AUTO) 0.5 10^3/uL (0.0-1.0); MONOCYTES % (AUTO) 5.9 %; NEUTROPHILS # (AUTO) 4.9 10^3/uL (1.5-6.6); NEUTROPHILS % (AUTO) 60.5 %; PLT - PLATELET COUNT 313 10^3/uL (130-450); RED BLOOD COUNT 4.97 10^6/uL (4.20-5.40); RED CELL DISTRIBUTION WIDTH 12.6 % (12.0-15.0); WHITE BLOOD COUNT 8.1 x10^3/uL (4.8-10.8)
[2024-03-05 19:26] LABS: CREATININE,URINE 241.3 mg/dL; MICROALBUM/CREATININE RATIO,UR 11.2 ug/mg (<30.0); MICROALBUMIN,URINE 2.7 mg/dL
[2024-03-05 19:27] LABS: THYROID STIMULATING HORMONE 1.52 uIU/mL (0.34-5.60)
[2024-03-05 19:45] LABS: ALBUMIN 4.5 g/dL (3.2-5.5); ALBUMIN/GLOBULIN RATIO 1.8 (1.0-2.2); ALKALINE PHOSPHATASE 83 IU/L (42-121); ALT ALANINE AMINOTRANSFERASE 23 IU/L (10-60); AST ASPARTATE AMINOTRANSFERASE 18 IU/L (10-42); BILIRUBIN,TOTAL 0.6 mg/dL (0.2-1.0); BUN - BLOOD UREA NITROGEN 13 mg/dL (6-20); CALCIUM 9.3 mg/dL (8.5-10.3); CARBON DIOXIDE - CO2 31 mmol/L (21-32); CHLORIDE 101 mmol/L (101-111); CHOL/HDL RATIO 5.5 (<4.4); CHOLESTEROL 199 mg/dL; CREATININE 0.8 mg/dL (0.6-1.3); GFR - MDRD 79 (>89); GLUCOSE 153 mg/dL (74-104); HDL CHOLESTEROL 36 mg/dL; LDL CHOLESTEROL,CALCULATED 137 mg/dL; LDL/HDL RATIO 3.8 (<4.4); POTASSIUM 4.1 mmol/L (3.5-4.5); SODIUM 137 mmol/L (135-145); TRIGLYCERIDES 131 mg/dL; VLDL CHOLESTEROL 26 mg/dL
[2024-03-05 19:59] LABS: ESTIMATED AVERAGE GLUCOSE 180 mg/dL (70-100); HEMOGLOBIN A1c% 7.9 % (4.27-6.07)
== END 2024-03-05 12:14 | disposition home or self-care (01) ==
LOC: LAB.N 12:13
PROVIDERS: ATTEND Family Medicine
DX: I10 Essential (primary) hypertension (principal); G50.0 Trigeminal neuralgia; E11.9 Type 2 diabetes mellitus without complications; G47.9 Sleep disorder, unspecified; J45.909 Unspecified asthma, uncomplicated; F33.2 Major depressive disorder, recurrent severe without psychotic features; K21.9 Gastro-esophageal reflux disease without esophagitis; E78.5 Hyperlipidemia, unspecified; F41.1 Generalized anxiety disorder
CPT/HCPCS: 36415; 80050; 80061; 82043; 82306; 82570; 83036; 83721